=== PATIENT | male | born 1940 | race Caucasian/White ===

== ENCOUNTER → 2020-06-12 09:13 | Outpatient (BNVA) | payer MEDICARE, SELFPAY | PROVIDERS: Family Provider Internal Medicine; PCP Internal Medicine; Visit Provider Urology | DX: R97.20 Elevated prostate specific antigen [PSA] (principal); N41.1 Chronic prostatitis | CPT/HCPCS: 81001; 84153 ==

== ENCOUNTER → 2020-10-18 17:15 | Outpatient (BNVA) | payer MEDICARE, SELFPAY | PROVIDERS: Family Provider Internal Medicine; PCP Internal Medicine; Visit Provider Internal Medicine | DX: I10 Essential (primary) hypertension (principal); N41.1 Chronic prostatitis; Z13.220 Encounter for screening for lipoid disorders | CPT/HCPCS: 80053; 80061; 84443; 85025 ==

== ENCOUNTER → 2020-11-09 13:44 | Outpatient (BNVA) | payer MEDICARE, SELFPAY | PROVIDERS: Family Provider Internal Medicine; PCP Internal Medicine; Visit Provider Nurse Practitioner Family | DX: R33.9 Retention of urine, unspecified (principal); N41.1 Chronic prostatitis | CPT/HCPCS: 81003; 87077; 87086; 87184 ==

== ENCOUNTER → 2020-11-30 14:09 | Outpatient (BNVA) | payer MEDICARE, SELFPAY | PROVIDERS: Family Provider Internal Medicine; PCP Internal Medicine; Visit Provider Nurse Practitioner Family | DX: N41.1 Chronic prostatitis (principal); R33.9 Retention of urine, unspecified | CPT/HCPCS: 81003; 87086 ==

== ENCOUNTER → 2021-06-12 08:27 | Outpatient (BNVA) | payer MEDICARE, SELFPAY | PROVIDERS: Family Provider Internal Medicine; PCP Internal Medicine; Visit Provider Urology | DX: N41.1 Chronic prostatitis (principal); R33.9 Retention of urine, unspecified | CPT/HCPCS: 81003 ==

== ENCOUNTER → 2022-01-16 10:04 | Outpatient (BNVA) | payer MEDICARE, SELFPAY | PROVIDERS: Family Provider Internal Medicine; PCP Internal Medicine; Visit Provider Internal Medicine | DX: Z20.822 Contact with and (suspected) exposure to COVID-19 (principal); Z01.818 Encounter for other preprocedural examination; R13.10 Dysphagia, unspecified; I10 Essential (primary) hypertension | CPT/HCPCS: 87635 ==

== ENCOUNTER 2022-01-21 06:39 | Day surgery (SDC) | payer MEDICARE, SELFPAY ==
[2022-01-18 12:24] VITALS: BMI 23.6
--- NOTE | 2022-01-21 07:33 | P.HP_ITS ---
Same Day Surgery H&P Indication for Procedure/HPI DATE OF PROCEDURE: January 21, 2022 CHIEF COMPLAINT/INDICATIONFOR SURGICAL PROCEDURE: Dysphagia PREOP DIAGNOSIS: Acute dysphagia PLANNED PROCEDURE: Operation Date: 01/21/22 08:45 Proposed Procedures p EGD 58207(Not Applicable) - Chance Gr MD Medications/Allergies* Home Medications Medication Instructions Recorded Confirmed Type lisinopril 20 mg tablet 1 mg PO DAILY 01/18/22 01/18/22 History tamsulosin 0.4 mg capsule 0.4 mg PO BID 01/18/22 01/18/22 History Allergies/Adverse Reactions Allergy/AdvReac Type Severity Reaction Status Date / Time No Known Allergies Allergy Verified 01/16/22 09:19 Pertinent History/Comorbid Conditions* Medical History (Updated 01/16/22 @ 09:39 by Chance Gr MD) Chronic prostatitis Elevated PSA Erectile dysfunction HTN (hypertension) Hx of melanoma of skin Incomplete bladder emptying Surgical History (Updated 06/12/20 @ 09:45 by Tariq Murcia MD) Hx of umbilical hernia repair Family History (Updated 05/17/20 @ 16:22 by ALICIA Beckman) Father, AT AGE 49 BRAIN CANCER Mother, AT AGE 48 RETINOBLASTOMA,LUNG CANCER Cancer Mother Sister Father Social History Smoking and tobacco status: never smoked Alcohol intake: unknown Marital status: / Current occupational status: retired History of recent travel: No Pertinent Exam Findings alert, oriented x 3, clear to auscultation bilaterally, regular rate & rhythm, operative site marked and procedure specific exam findings Recommendations Surgery/Procedure today Coding Level of Care Code Acute Sap Senior Developer for Eileen Norris
--- NOTE | 2022-01-21 07:38 | ANES.PREANE2 ---
Pre-Anesthetic Assessment Height/Weight: Height 1.75 m Weight 72.575 kg Preop Diagnosis: Acute dysphagia Operation Date: 01/21/22 08:45 Proposed Procedures p EGD 72678(Not Applicable) - Chance Gr MD Was Beta Valdemar taken within 24 hours: N/A Was Clonidine taken within 24 hours: N/A Last intake: 01/20/22 Social No alcohol and No tobacco Exam alert, oriented x 3, clear to auscultation bilaterally and regular rate & rhythm Airway Submandibular: within normal limits Cervical ROM: within normal limits Mallampati: Class III Comments: Comments: Missing Pulmonary None reported CV/HEM Hypertension None reported Hepatic None reported GI None reported Metabolic None reported Musc/skel None reported Neuropsych None reported Anesthetic Plan ASA status: 2 Anesthesia: Anesthesia Evaluation Other: I discussed with the patient risks, goals, and benefits of MAC and general anesthesia. We discussed spectrum of MAC anesthesia including conversion to general as well as possibility of recall of intraoperative stimuli including discomfort/pain. Patient agrees to proceed with MAC. Risk of > 500 ml blood loss (7ml/kg in children): No Medications/Allergies Home Medications Medication Instructions Recorded Confirmed Last Taken Type lisinopril 20 mg tablet 1 mg PO DAILY 01/18/22 01/18/22 01/20/22 History tamsulosin 0.4 mg capsule 0.4 mg PO BID 01/18/22 01/18/22 01/20/22 History Allergies Allergy/AdvReac Type Severity Reaction Status Date / Time No Known Allergies Allergy Verified 01/21/22 07:51 [facility] Anesthesia Medical History Chronic prostatitis Elevated PSA Erectile dysfunction HTN (hypertension) Hx of melanoma of skin Incomplete bladder emptying Surgical History Hx of umbilical hernia repair Family History Mother , AT AGE 48 RETINOBLASTOMA,LUNG CANCER Cancer Sister Cancer Father , AT AGE 49 BRAIN CANCER Cancer Social History Smoking and tobacco status: never smoked Alcohol intake: unknown Marital status: / Current occupational status: retired History of recent travel: No Data Anesthesia Cardiac Studies: No Data to Display
[2022-01-21 07:50] VITALS: BP 165/71; PULSE 75; RESP 16; TEMP 36.2; O2SAT 98
[2022-01-21] MEDS: sodium chloride 0.9% 1,000 ML 30 ML IV (08:00)
[2022-01-21 08:53] VITALS: BP 101/64; PULSE 75; RESP 18; TEMP 36.4; O2SAT 94
[2022-01-21 09:09] VITALS: BP 128/77; PULSE 74; RESP 18; TEMP 36.6; O2SAT 95
--- NOTE | 2022-01-21 13:49 | ANE.PACU2 ---
Inpatient post-anesthesia follow up: Airway intact: Yes Vital signs: Temperature 97.8 F Pulse Rate 74 Respiratory Rate 18 Blood Pressure 128/77 Pulse Oximetry 95 Oxygen Delivery Me thod Room Air Oxygen Flow Rate Fraction of Inspir ed Oxygen Hydration adequate: Yes Nausea and vomiting: No Pain level: 1 Mental status: Baseline
[2022-01-23 09:46] LABS: H. Pylori / CLO Test Negative
== END 2022-01-21 09:47 | disposition home or self-care (01) ==
PROVIDERS: PCP Internal Medicine; Visit Provider Internal Medicine
PROC: 0DJ08ZZ Inspection of Upper Intestinal Tract, Via Natural or Artificial Opening Endoscopic (ICD-10-PCS; CPT 43235; principal; 2022-01-21 08:45)
DX: R13.10 Dysphagia, unspecified (principal); I10 Essential (primary) hypertension; K21.00 Gastro-esophageal reflux disease with esophagitis, without bleeding; K44.9 Diaphragmatic hernia without obstruction or gangrene; K29.70 Gastritis, unspecified, without bleeding
CPT/HCPCS: 43239; 87077; 88305; 88313; 88342; J2704; J7030

== ENCOUNTER → 2022-05-06 12:33 | Outpatient (BNVA) | payer MEDICARE, SELFPAY | PROVIDERS: PCP Internal Medicine; Visit Provider Urology | DX: R33.9 Retention of urine, unspecified (principal); N41.1 Chronic prostatitis | CPT/HCPCS: G0463; 81003; 87077; 87086; 87186; 99213 ==

== ENCOUNTER 2023-12-30 09:19 | Inpatient (IN) | payer MEDICARE, SELFPAY ==
[2023-12-30] VITALS (62 sets, daily range): BP systolic 80–141; BP diastolic 48–89; PULSE 66–97; RESP 7–27; TEMP 36.8–37.2; O2SAT 90–100; BMI 23.6
--- NOTE | 2023-12-30 09:23 | ECG_ITS ---
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 Measurements Intervals [place] Rate: 100 P: 84 OR: 203 QRS: -27 QRSD: 106 T: 56 QT: 348 QTc: 450 Interpretive Statements SINUS TACHYCARDIA SEPTAL MYOCARDIAL INFARCTION , POSSIBLY ACUTE [40+ ms Q WAVE IN V1/V2] ST ELEVATION, CONSIDER ANTERIOR INJURY [MARKED ST ELEVATION W/O NORMALLY ST elevation in the high lateral leads suggestive of myocardial injury with reciprocal ST depressions in the inferior leads INFLECTED T-WAVE IN V2-V5] ACUTE [place] Compared to ECG 10/09/2014 13:54:27 Myocardial infarct finding now present ST (T wave) deviation now present Sinus rhythm no longer present T-wave abnormality no longer present Electronically Signed On 12-30-2023 18:25:20 PROFESSIONAL ARCHITECT by Kathleen Plata M.D. [email or web address]/store/[id number]
--- NOTE | 2023-12-30 09:25 | XRR_ITS ---
PROCEDURE INFORMATION: Exam: XR Chest Exam date and time: 12/30/2023 9:36 AM Age: 83 years old Clinical indication: Condition or disease; Other: Acute mi TECHNIQUE: Imaging protocol: Radiologic exam of the chest. Views: 1 view. COMPARISON: No relevant prior studies available. FINDINGS: Lungs: No consolidation. Pleural spaces: No sizable pleural effusion or pneumothorax. Heart/Mediastinum: No cardiomegaly. Bones/joints: Degenerative changes of the bilateral shoulders. XR/XR chest 1V portable [id number] IMPRESSION: No acute intrathoracic findings.
--- NOTE | 2023-12-30 09:27 | W.ED.CHESTPA ---
HPI - Chest Pain General: Stated Complaint: chest pains Time Seen by Provider: 12/30/23 09:25 Source: patient Mode of arrival: ambulatory History of Present Illness: 83-year-old male presents emergency room complaining chest pain intermittent began yesterday progressively worse this morning to the point where he is extremely diaphoretic and dyspneic with pain radiating to his arms. Patient had some episodes of chest pain yesterday with exertion that caused him to have to stop and rest it resolved this morning it began while he was doing some mild exertional work and it persisted to the point that he presented to the emergency room. Initial EKG shows a ST elevation in the anterior leads. MD complaint: chest pain Onset (ago): hour(s) Onset: during exertion Pain location: substernal Pain radiation: left arm and left shoulder Severity: severe Quality: sharp Relieving factors: nothing Exacerbating factors: nothing Associated symptoms: Deny abdominal pain, diaphoresis, dyspnea, fever(s), leg edema, nausea, palpitations, sense of impending doom, syncope or vomiting Treatment prior to arrival: none Review of Systems Const: Denies: fever(s), chills or diaphoresis Card: Denies: chest pain, palpitations or syncope Resp: Denies: dyspnea GI: Denies: abdominal pain, nausea or vomiting : Denies: dysuria, urinary frequency or urinary urgency Musc: Denies: neck pain or back pain Skin/Breast: Denies: rash PFSH ED PFSH: Medical History (Updated 12/30/23 @ 09:42 by Jose Guidry DO) Retinoblastoma Hx of melanoma of skin Erectile dysfunction HTN (hypertension) Chronic prostatitis Incomplete bladder emptying Elevated PSA Surgical History (Updated 12/30/23 @ 09:42 by Jsoe Guidry DO) H/O enucleation of right eyeball Hx of umbilical hernia repair Family History Mother , AT AGE 48 RETINOBLASTOMA,LUNG CANCER Cancer Sister Cancer Father , AT AGE 49 BRAIN CANCER Cancer Social History Smoking and tobacco/nicotine status: never used tobacco/nicotine Alcohol intake: never Substance/Drug Use: never Marital status: / Current occupational status: retired Physical Exam Const: COMMON NORMALS: no acute distress GENERAL APPEARANCE: cooperative and comfortable ORIENTATION/CONSCIOUSNESS: Yes awake, Yes oriented to person, Yes oriented to place and Yes oriented to time HENMT: COMMON NORMALS: normocephalic, atraumatic and hearing grossly normal bilaterally HEAD & SCALP: normocephalic and atraumatic Resp: COMMON NORMALS: normal respiratory effort, No retractions, No use of accessory muscles and clear to auscultation bilaterally AUSCULTATION: clear to auscultation bilaterally Cardio: COMMON NORMALS: regular rate, regular rhythm and No murmurs present (Cardio) RATE: regular rate RHYTHM: regular rhythm GI: COMMON NORMALS: Soft to palpation and No hepatosplenomegaly present AUSCULTATION: Yes normoactive bowel sounds PALPATION: Yes Soft to palpation, No Tenderness to palpation present (GI), No Guarding due to palpation present (GI) and Yes No hepatosplenomegaly present Extremity: COMMON NORMALS: normal to inspection, capillary refill normal, no clubbing, cyanosis or edema, no calf tenderness and no pedal edema Neuro: SENSORIUM/ORIENTATION: Yes oriented to person, Yes oriented to place and Yes oriented to time Skin: COMMON NORMALS: no rashes or lesions noted GENERAL SKIN EXAM: no rashes or lesions noted MDM - Chest Pain Medical Decision Making Acute ST elevation [place]. Dr. Fink happened to be in the emergency room at the time consulting another patient. Presented EKG Dr. Mathew seen the patient shortly thereafter. He is planning to take the patient to the Police Captain Senior for his acute anterior [place]. Patient was given Plavix aspirin and heparin he is also started on a nitro drip. Differential Diagnosis Likely acute myocardial infarction Medical Records I reviewed the patient's medical records. Lab Data I reviewed the patient's lab results. All radiology interpretation(s) finalized by discharge Discharge Plan Discharge Patient Disposition: Admitted As Inpatient Clinical Impression: ST elevation (STEMI) myocardial infarction Condition: Stable Coding Level of Care Code ED Boning Room 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
--- NOTE | 2023-12-30 09:29 | XACV_ITS ---
Exam Room: 2 Ht: 175 cm Wt: 73 kg BSA: 1.88 m2 Gender: Male : 1940 Exam Priority: Routine Indication(s): - Anterior wall AK w/PTCA and stent placement Procedure(s): Procedure Description: Diagnostic procedure Procedure Description: PCI procedure Procedure Description: Left Heart Catheterization Procedure Description: Left ventriculography Procedure Description: Drug Eluting Coronary Stent Procedure Description: PTCA Procedure Description: Coronary Angiography Aleks FREGOSO; Diagnostic Cath Status: Emergency Diagnostic Findings * No prior history of heart disease. 2 episodes of shortness of breath and pressure yesterday. Today severe chest pain with ST segment elevation V1 V2, 1 and L. Reciprocal changes inferiorly. Coronary angiography performed via the right radial artery. There is right coronary artery dominance. There are 2 separate ostia for the LAD and circumflex so there is no true left main. The circumflex contains a very mild plaquing but no significant lesions. The LAD is occluded at the ostium. There is moderate calcification. Once the vessel is open the LAD contains moderate diffuse disease throughout. The right is the dominant vessel and ends distally as a tiny posterior descending artery and 2 tiny posterior left ventricular branches. The right coronary artery is essentially normal. PCI Status: Emergency PCI LVEF Assessed: Yes PCI Indication: Immediate PCI for STEMI Interventional Findings * Somewhat difficult intervention due to placement of the guiding catheter. Initially the stent could not be placed primarily. Balloon angioplasty with a smaller balloon was performed and then the vessel was subsequently stented from the ostium through the area of occlusion. A good angiographic result was obtained. The LAD is moderately diffusely diseased but patent at the end of the procedure. Patient tolerated the procedure well. He was hemodynamically stable throughout. There was some accelerated idioventricular rhythm post opening the vessel which resolved prior to his leaving the catheterization laboratory. Decision for PCI with Surgical Consult: No PCI for Multi-vessel Disease: No Conclusions 1. LAD occlusion with angioplasty and stenting successful with good angiographic result. Recommendations * Medical therapy. Interventional RX Recommendation: PCI w/o planned CABG Diagnostic RX Recommendation: PCI w/o planned CABG Anticoagulation: Heparin Ventriculography Ejection Fraction: 45.0 % Pressures Phase:Rest AO : 113 / 57 ( 88 ) @ 10:00:00 AM 118 / 66 ( 88 ) @ 10:01:00 AM 103 / 73 ( 88 ) @ 10:01:00 AM 94 / 77 ( 86 ) @ 10:07:00 AM 90 / 74 ( 83 ) @ 10:11:00 AM 85 / 63 ( 74 ) @ 10:18:00 AM 81 / 59 ( 71 ) @ 10:19:00 AM 126 / 71 ( 97 ) @ 10:25:00 AM 126 / 72 ( 97 ) @ 10:25:00 AM 120 / 77 ( 97 ) @ 10:28:00 AM 106 / 79 ( 93 ) @ 10:29:00 AM LV : 120 / -6 / 5 @ 10:00:00 AM 152 / -17 / 32 @ 10:00:00 AM 125 / 1 / 36 @ 10:24:00 AM 129 / 6 / 33 @ 10:25:00 AM 130 / 6 / 34 @ 10:25:00 AM Valves Phase:DefaultPhase AV : 5.0 @ 10:39:32 AM 5.0 @ 10:39:32 AM AV Mean Gradient: 14.0 @ 10:39:32 AM 14.0 @ 10:39:32 AM Clinical Evaluation EBL: 5mL-10mL Procedural Details Current Diagnosis : STEMI. Admit Source: Emergency department. Pre-Procedure Time Out. Identified patient by full name and date of as verbalized by the patient/guarantor. Does the consent match the physician's order: Yes. Accurate & Complete Informed Consent: Yes. Inpatient/Outpatient History & Physical on Chart: Yes. If H&P is completed, is and addenduem needed: Yes; If yes, is the addendum complete: Yes. Visualize and Verify Site with Patient/Guarantor: N/A. Relevant Radiology Images available: N/A. Pre-op teaching completed and patient verbalized understanding. The risks, benefits, and alternatives of sedation and/or procedure were discussed by physician. The patient agrees to continue. Procedure started. Inpatient/Outpatient History & Physical on Chart: N/A Emergent. [facility] Clinical Fraility Score: 3: Managing Well. Cafe Helper Indications: ACS <= 24 hours. Chest Pain Symptom Assessment: Typical Angina Symptoms. Cardiovascular Instability: Yes, if yes, Persistant Ischemic Symptoms. Correct patient, site and procedure confirmed by cath team. Current diagnosis: STEMI. PERRLA. 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 Lungs clear x 5 lobes. IV Site on Arrival: 18 gauge in the right anticubital. IV Site on Arrival: 20 gauge in the left anticubital. IV Fluids: 0.9% NaCl at KVO. 0 mL infused prior to electronic lab technician. Pre Procedural Pulses: right radial was 2+. Pre Procedural Pulses: bilateral dorsalis pedis was 2+. Oxygen started at 2liters/min via nasal canula. left groin was prepped with chloroprep then draped in the usual sterile fashion. right radial was prepped with chloroprep then draped in the usual sterile fashion. Physician notified. Baseline sample Acquired. HR: 95 BPM. Physician arrived. Physician scrubbed in. Immediate Pre-Procedure Time Out. Correct Patient: Yes; Correct Procedure: Yes; Correct Site: Yes; Correct Patient Position: Yes; Correct Supplies: Yes; Dried Flammable Prep: Yes; Blood Products Available: N/A;. Lidocaine 1% infiltrated to the right radial. Arterial access obtained. 6 samoan XB 3 guide catheter was inserted over the wire. EDP Sample taken: LV 120/-7,5; HR: 74 BPM; SpO2: 99%. Pullback taken: LV 152/-18,32; AO 113/57(88); Mean: 16mmHg, Peak to Peak: 39mmHg, SEP: 25sec/min; HR: 97 BPM; SpO2: 98%. [place] guidewire was advanced through the guide catheter to lesion in the prox LAD. PCI Indication: STEMI. 3.5x15mm Stent inserted to lesion in the prox LAD. Intact stent out OTW. Inflation number : 1 A AB TREK 2.50X12 RX BALLOON was prepped and advanced across the Prox LAD , then inflated to 8 GERA for 0:10 seconds. Inflation number: 2 The AB TREK 2.50X12 RX BALLOON was reinflated across the Prox LAD, to 8 GERA for 0:20 seconds. Inflation number: 3 The AB TREK 2.50X12 RX BALLOON was reinflated across the Prox LAD, to 12 GERA for 0:20 seconds. Balloon out. Inflation Number : 4 A PENG Joaquin RASHAAD 3.5X15 MILLIE -Lot Number# _[id number] EXP: 09/16/2025 was prepped and advanced across the Prox LAD. The stent was deployed at 12 GERA for 0:29 seconds. Stent balloon out over wire. Results checked. PCI Indication : Immediate PCI for STEMI. Wire out. Guide catheter out. A 5 samoan TIG catheter in over wire. Catheter removed over the exchange wire. A 5 samoan Angled Pig catheter in over wire. EDP Sample taken: LV 125/1,36; HR: 95 BPM; SpO2: 97%. LV gram performed in [place] @ 10 mL/second for a total of 30 mL. EDP Sample taken: LV 129/6,33; HR: 94 BPM; SpO2: 96%. Pullback taken: LV 130/6,34; AO 126/71(97); Mean: 14mmHg, Peak to Peak: 5mmHg, SEP: 8sec/min; HR: 94 BPM; SpO2: 97%. Catheter removed over the exchange wire. A 5 samoan TIG catheter in over wire. Multiple views taken of right coronary artery. Catheter removed over the exchange wire. Physician scrubbed out. A TR Band was successful obtaining hemostatsis at the Right Radial artery insertion site. Vital chart was stopped. Post Procedure: Pulses reassessed and unchanged. PERRLA. 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 No VTE prophylaxis required. Medication's Wasted: Lidocaine 1% = 2 mL. Medication's Wasted: Other = Fentanyl 50mcg. Medication's Wasted: Heparin = 1000 units. Medication's Wasted: Nitro = 49.8 mg. Total IV fluids: 30 mL. Post-op diagnosis: CAD. Complications: None. Estimated blood loss: 5mL-10mL. Responsiveness - Normal response to verbal stimuli; alert and oriented, PERRLA. Airway - Unaffected, no intervention required; spontaneous ventilation. Circulation: W/N/L, pulses unchanged. Nausea/Vomiting: No. Procedure completed. Patient transferred by wheelchair to CPRU. Access Site Site: Right Radial artery Sheath Size: 6 Fr Hemostasis Method: TR Band Hemostasis Success: Successful Procedure Medications Start: 9:55 AM Stop: 9:55 AM Medication: Fentanyl Amount: 25 mcg Route: I.V. Start: 9:55 AM Stop: 9:55 AM Medication: Versed Amount: 1 mg Route: I.V. Start: 9:58 AM Stop: 9:58 AM Medication: Nitrogylcerin Amount: 200 mcg Route: I.A. Start: 9:58 AM Stop: 9:58 AM Medication: Fentanyl Amount: 25 mcg Route: I.V. Start: 10:00 AM Stop: 10:00 AM Medication: Versed Amount: 0.5 mg Route: I.V. Start: 10:15 AM Stop: 10:15 AM Medication: Versed Amount: 0.5 mg Route: I.V. I, the attending physician, have reviewed and verified all procedure medications. Yes, all medications given per verbal order History/Risk Factors Hypertension: Yes Dyslipidemia: Yes Peripheral Arterial Disease (PAD): No Myocardial Infarction (AK): No Obesity: No Renal Disease: No Prior Interventions PCI: No CABG: No Valve Surgery: No Report Signatures Finalized by Dr. Humberto Fink MD on 12/30/2023 11:12 AM
[2023-12-30] MEDS: ondansetron 2 mg/ML SDV 2 mL 4 MG IVP (09:35)
[2023-12-30] MEDS: heparin 5,000 unit/mL INJ 1 mL 4000 UNIT IVP (09:35)
--- NOTE | 2023-12-30 09:35 | PC.PHAR ---
[facility] VERIFIED ALL CURRENT MEDICATIONS. 12/30/23
[2023-12-30] MEDS: clopidogrel 300 mg Tablet 600 MG PO (09:36)
[2023-12-30] MEDS: aspirin 325 mg Tablet PO (09:37)
[2023-12-30] MEDS: nitroglycerin drip 50 MG/250 ML PREMIX IV (09:38)
[2023-12-30] MEDS: sodium chloride 0.9% 500 ML 999 ML IV (09:41)
--- NOTE | 2023-12-30 09:41 | P.HP_ITS ---
Providers/Chief Complaint 2 Admitting Physician: Aleks Primary Care Provider: Chance Gr MD Chief Complaint: chest pains History of Present Illness Carlos Manuel Young is a 83 year old male with no known prior history of heart disease. He has a history of hypertension and Jones's esophagus. He had a retinoblastoma as a child. Yesterday while he was out in the [employer] working he had an episode of pressure in his chest twice. They both went away. This morning he had the sudden onset of severe chest pressure which caused him to sweat and become short of breath. He came to the emergency room where he has ST segment elevation in leads V1 through V3 as well as leads I and L. There is ST segment depression in leads II, III and aVF. He has been given aspirin, Plavix and heparin bolus. He is being prepared for cardiac catheterization. Review of Systems 2 Narrative: Review of systems is negative. This was an abbreviated review due to the acute nature of the problem. Medications/Allergies Home Medications Medication Instructions Recorded Confirmed Last Taken Type pantoprazole 40 mg tablet,delayed 40 mg PO DAILY #90 tabs 01/21/22 12/30/23 Unknown Rx release omega 3-yac-gft-fish oil 100 1 cap PO DAILY 02/05/22 12/30/23 Unknown History mg-160 mg-1,000 mg capsule (Fish Oil) tamsulosin 0.4 mg capsule 0.4 mg PO BID #180 caps 12/02/22 12/30/23 Unknown Rx lisinopril 20 mg tablet 20 mg PO DAILY 12/30/23 12/30/23 Unknown History Allergies Allergy/AdvReac Type Severity Reaction Status Date / Time No Known Allergies Allergy Verified 08/07/22 09:54 PFSH Acute 2 PFSH: Medical History Hx of melanoma of skin Erectile dysfunction HTN (hypertension) Chronic prostatitis Incomplete bladder emptying Elevated PSA Surgical History Hx of umbilical hernia repair Family History Mother , AT AGE 48 RETINOBLASTOMA,LUNG CANCER Cancer Sister Cancer Father , AT AGE 49 BRAIN CANCER Cancer Social History Smoking and tobacco/nicotine status: never used tobacco/nicotine Alcohol intake: never Substance/Drug Use: never Marital status: / Current occupational status: retired Physical Exam 2 Narrative: GENERAL: He is anxious and having discomfort in his chest HEENT: Exam within normal limits. NECK: Supple without jugular vein distention. The carotid upstroke is normal without bruits. BACK: Exam normal. LUNGS: Clear. HEART: Regular rate and rhythm. ABDOMEN: Benign without organomegaly or tenderness. EXTREMITIES: No edema. NEUROLOGIC: Exam normal. SKIN: Unremarkable. Data 12/30/23 09:30 12/30/23 09:30 A&P Assessment and plan (1) Essential hypertension: (2) ST elevation (STEMI) myocardial infarction: (3) H/O enucleation of right eyeball: (4) Barretts esophagus: (5) Esophageal ulcer with bleeding: (6) Retinoblastoma: Plan He will go directly to cardiac catheterization. Currently there are no labs available other than EKG. Attestations 2 Medical Necessity Statement*: Patient needs admission to the hospital for acute cardiac catheterization and management of an acute anterior wall myocardial infarction. I would expect his hospital stay to cross 2 midnights. and Moderate Time for a total of 40 minutes, includes reviewing past or interval history, examining/interviewing patient, placing orders, counseling patient/family/other support, updating patient/family/other support, discussing plan of care with staff, communicating with other healthcare providers, documenting encounter and coordinating care Diagnoses Essential hypertension I10 ST elevation (STEMI) myocardial infarction I21.3 H/O enucleation of right eyeball Z90.01 Barretts esophagus K22.70 Esophageal ulcer with bleeding K22.11 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
[2023-12-30 09:47] LABS: Basophils # 0.1 10^3/uL (0.0-0.1); Basophils % 0.5 %; Eosinophils # 0.2 10^3/uL (0.0-0.8); Eosinophils % 1.2 %; Hematocrit 47.9 % (37-53); Lymphocytes # 7.2 10^3/uL (0.8-4.8); Lymphocytes % 53.2 %; Mean Corpuscular HGB Conc 34.9 g/dL (30-55); Mean Corpuscular Hemoglobin 33.3 pg (27-33); Mean Corpuscular Volume 95.6 fl (82-101); Mean Platelet Volume 11.3 fL (7.4-10.4); Monocytes # 0.7 10^3/uL (0.2-0.9); Monocytes % 5.4 %; Neutrophils % 39.3 %; Nucleated Red Blood Cells % 0 %; Platelet Count 166 10^3/cmm (157-399); Red Blood Count 5.01 10^6/uL (3.85-5.65); Red Cell Distribution Width 15.9 % (12.1-15.1); White Blood Count 13.49 10^3/uL (3.29-11.43)
[2023-12-30 10:03] LABS: Alanine Aminotransferase 15 U/L (0-41); Albumin Level 4.7 g/dL (3.5-5.2); Alkaline Phosphatase 61 U/L (40-130); Aspartate Amino Transferase 22 U/L (0-40); Blood Urea Nitrogen 14 mg/dL (8-23); Calcium 9.4 mg/dL (8.5-10.5); Carbon Dioxide 20 mmol/L (22-29); Chloride 103 mmol/L (98-107); Creatinine Clr Calc Pharmacy 56.5646; Globulin 2.8 g/dL (1.3-4.6); Glucose 136 mg/dL (65-115); Osmolality Calculated 293 mOsm/kg (285-295); Sodium 140 mmol/L (136-145); Total Bilirubin 0.5 mg/dL (0.15-1.2); Total Protein 7.5 g/dL (6.6-8.7)
[2023-12-30 10:06] LABS: Anion Gap 22.1 (5-19); Potassium 5.1 mmol/L (3.5-5.1)
[2023-12-30 10:10] LABS: Troponin(5th) Baseline 34 ng/L (0-15)
--- NOTE | 2023-12-30 11:13 | PC.NURSE ---
Pt taken to CSU via w/c at this time. Report called to Dawna KUMAR. TRB intact to R radial, no hematoma noted.
--- NOTE | 2023-12-30 11:44 | ECG_ITS ---
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 Measurements Intervals [place] Rate: 86 P: 57 HI: 213 QRS: 41 QRSD: 85 T: 78 QT: 369 QTc: 442 Interpretive Statements SINUS RHYTHM WITH FIRST DEGREE AV BLOCK ANTEROSEPTAL MYOCARDIAL INFARCTION , PROBABLY RECENT [40+ ms Q WAVE IN V1-V4] ACUTE MO Compared to ECG 12/30/2023 09:23:13 First degree AV block now present Sinus tachycardia no longer present ST (T wave) deviation no longer present Myocardial infarct finding still present Electronically Signed On 12-30-2023 18:34:02 SWEEP MOLDER by Kathleen Plata M.D. [id number]
[2023-12-30] MEDS: sodium chloride 0.9% 1,000 ML 100 ML IV ×2 (11:51→22:08)
[2023-12-30] MEDS: metoprolol tartrate 25 mg Tablet PO (11:53)
[2023-12-30 13:15] LABS: Troponin 5 2HR 3169 ng/L (0-15); Troponin 5 2HR Delta 3135 ABS# (0-10)
--- NOTE | 2023-12-30 13:45 | PC.NURSE ---
TR band removal 1150 -2mLs 1220 -2mLs 1245 -2mLs 1305 -2mLs 1325 -2mLs 1345 -3mLs dressing applied, 2x2 and tegaderm dressing dry and intact at this time
--- NOTE | 2023-12-30 15:25 | ECG_ITS ---
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 Measurements Intervals [place] Rate: 72 P: 5 AL: 177 QRS: 59 QRSD: 84 T: 90 QT: 385 QTc: 423 Interpretive Statements SINUS RHYTHM LOW QRS VOLTAGE IN EXTREMITY LEADS [QRS DEFLECTION < 0.5 mV IN LIMB LEADS] ANTEROSEPTAL MYOCARDIAL INFARCTION , PROBABLY RECENT [40+ ms Q WAVE IN V1-V4] ACUTE IN Compared to ECG 12/30/2023 11:44:36 Low QRS voltage now present First degree AV block no longer present Myocardial infarct finding still present Electronically Signed On 12-30-2023 18:40:08 WIRE BOUND BOX MACHINE OPERATOR by Kathleen Plata M.D. [id number]
--- NOTE | 2023-12-30 17:12 | PC.NURSE ---
contacted doctor about low blood pressure no new orders at this time except holding metoprolol due to blood pressure
[2023-12-30] MEDS: tamsulosin 0.4 mg Capsule 0.400000000000000022 MG PO (17:32)
[2023-12-30 20:40] LABS: Troponin T (5th) Once 8129 ng/L (0-15)
[2023-12-30] MEDS: atorvastatin 40 mg Tablet 80 MG PO (21:04)
[2023-12-31] VITALS (7 sets, daily range): BP systolic 82–101; BP diastolic 56–63; PULSE 69–81; RESP 15–17; TEMP 36.8–37.1; O2SAT 93–95; BMI 18.6
[2023-12-31] MEDS: pantoprazole DR 40 mg Tablet PO (08:38)
[2023-12-31] MEDS: aspirin 81 mg EC Tablet PO ×2 (08:38)
[2023-12-31] MEDS: omega-3 fatty acids 1,000 mg Capsule 1000 MG PO (08:38)
[2023-12-31] MEDS: metoprolol tartrate 25 mg Tablet PO (08:38)
[2023-12-31] MEDS: clopidogrel 75 mg Tablet PO (08:38)
[2023-12-31] MEDS: tamsulosin 0.4 mg Capsule 0.400000000000000022 MG PO ×2 (08:38→21:58)
--- NOTE | 2023-12-31 08:39 | PM.PN ---
Subjective Subjective: Right feels much better this morning. He underwent angioplasty and stent of his ostial LAD yesterday. His troponin was above 8000. He has had no further arrhythmias other than some accelerated idioventricular rhythm in the Shipping Services Sales Representative. He also has had no evidence of heart failure. He has no further chest pain. Vitals/I&O/Wt Last Vital Signs Temp 98.3 F 12/31/23 04:00 Pulse 69 12/31/23 08:00 Resp 17 12/31/23 04:00 BP 93/59 12/31/23 04:00 Pulse Ox 95 12/31/23 08:00 O2 Del Method Room Air 12/31/23 08:00 O2 Flow Rate 2 12/30/23 09:32 12/30/23 12/31/23 12/31/23 22:59 06:59 14:59 Intake Total 1000 / 1000 Output Total 225 / 225 Balance 775 / 775 Weight last 48 hrs Weight 126 lb 9.6 oz Weight 121 lb 2 oz Weight 160 lb Physical Exam Narrative: GENERAL: In general he looks well this morning HEENT: Exam within normal limits. NECK: Supple without jugular vein distention. The carotid upstroke is normal without bruits. BACK: Exam normal. LUNGS: Clear. HEART: Regular rate and rhythm. ABDOMEN: Benign without organomegaly or tenderness. EXTREMITIES: No edema. Right radial artery entry site is flat, dry without bleeding or hematoma NEUROLOGIC: Exam normal. SKIN: Unremarkable. 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 I will make medication adjustments today. His blood pressure was a little soft last night so I held the beta-gerardo. If everything goes according to plan he may be discharged home tomorrow. 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
--- NOTE | 2023-12-31 09:15 | PC.NURSE ---
Noticed pt is completely dressed and walking around in his room. Pt asked about making a phone call and I informed him that the phone in his room only makes local calls and that if he needed to make a long distance call that I could make it for him and transfer it to his room. Pt never said if he needed to make a local or long distance call.
--- NOTE | 2023-12-31 09:40 | PC.NURSE ---
Notified Dept Director(Alanis) that I'm afraid that this pt may be an elopement risk although he seemed to understand that he needs to be here another day but he is completely dressed and up and about in his room.
--- NOTE | 2023-12-31 09:54 | PC.NURSE ---
Security is escorting my pt back from the ER to his room. Pt pointed to the security alarm technician which room was his. I went in to ask the pt what he was doing and he said that he was trying to find a phone to make a long distance call.
[2023-12-31] MEDS: atorvastatin 40 mg Tablet 80 MG PO (21:58)
[2024-01-01 00:49] VITALS: BP 71/48; TEMP 37.1
[2024-01-01 00:57] VITALS: BP 94/69
[2024-01-01 04:22] VITALS: BP 94/69; TEMP 37.1
[2024-01-01 08:00] VITALS: PULSE 69; O2SAT 95
[2024-01-01 08:07] VITALS: BP 99/75; TEMP 36.9
[2024-01-01] MEDS: metoprolol tartrate 25 mg Tablet 12.5 MG PO (08:33)
[2024-01-01] MEDS: clopidogrel 75 mg Tablet PO (08:33)
[2024-01-01] MEDS: lisinopril 2.5 mg Tablet PO (08:33)
[2024-01-01] MEDS: omega-3 fatty acids 1,000 mg Capsule 1000 MG PO (08:33)
[2024-01-01] MEDS: pantoprazole DR 40 mg Tablet PO (08:33)
[2024-01-01] MEDS: aspirin 81 mg EC Tablet PO (08:33)
[2024-01-01] MEDS: tamsulosin 0.4 mg Capsule 0.400000000000000022 MG PO (08:34)
--- NOTE | 2024-01-01 09:36 | PM.DCS ---
Discharge Providers Date of Admission: 12/30/23 11:19 Date of Discharge: January 01, 2024 Attending Provider at Admission: Humberto Fink MD Attending Provider at Discharge: Humberto Fink MD Primary Care Provider: Chance Gr MD Diagnoses at Discharge Discharge Diagnosis (1) Essential hypertension: Status: Acute (2) ST elevation (STEMI) myocardial infarction: Status: Acute (3) H/O enucleation of right eyeball: Status: Acute (4) Barretts esophagus: Status: Acute (5) Retinoblastoma: Status: Acute Reason for Visit Reason for Visit: chest pains Brief History: Patient arrived with chest pain and ST elevation in the anterior precordial leads suggesting an acute anterior wall myocardial infarction. He went directly to the cardiac catheterization laboratory. Hospital Course Hospital Course His LAD was occluded at the ostium. He has 2 separate ostia for the LAD and circumflex. 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 It was somewhat difficult to place the guide into the ostium of the LAD. Eventually I was able to accomplish this. It underwent angioplasty and subsequently stenting with a good angiographic result. His echocardiogram shows a wall motion disturbance in this area. He had no evidence of congestive heart failure. There were some reperfusion arrhythmias in the form of accelerated idioventricular rhythm. Those have resolved at the time of discharge. He is on 20 mg of lisinopril at home. His blood pressure was soft and most of the time below 100 mmHg systolic while in the hospital. In order to add low-dose beta-gerardo I decreased the dose of the lisinopril to 2.5 mg daily. At the time of discharge his systolic blood pressure is running right around 100 mmHg. He is doing well without chest pain or shortness of breath. The procedure was done from the right radial artery. There were no complications. No bleeding or hematoma. Physical Exam Narrative: GENERAL: In general he looks and feels well HEENT: Exam within normal limits. NECK: Supple without jugular vein distention. The carotid upstroke is normal without bruits. BACK: Exam normal. LUNGS: Clear. HEART: Regular rate and rhythm. ABDOMEN: Benign without organomegaly or tenderness. EXTREMITIES: No edema. At discharge the right radial artery area is flat, dry without bleeding or hematoma. NEUROLOGIC: Exam normal. SKIN: Unremarkable. Discharge Data Studies Completed and Pending Completed Studies During Hospitalization Category Date Time Status SUSTAINABLE LANDSCAPE ARCHITECT request for service Stat Exams 12/30/23 09:29 Completed XR chest 1V portable [id number] Stat Exams 12/30/23 09:25 Completed Radiology Impressions Chest X-Ray 12/30/23 09:25 IMPRESSION: No acute intrathoracic findings. Laboratory Results WBC 13.49 10^3/uL (3.29-11.43) H 12/30/23 09:30 RBC 5.01 10^6/uL (3.85-5.65) 12/30/23 09:30 Hgb 16.70 g/dL (11.27-16.99) 12/30/23 09:30 Hct 47.9 % (37-53) 12/30/23 09:30 MCV 95.6 fl (82-101) 12/30/23 09:30 MCH 33.3 pg (27-33) H 12/30/23 09:30 MCHC 34.9 g/dL (30-55) 12/30/23 09:30 RDW 15.9 % (12.1-15.1) H 12/30/23 09:30 Plt Count 166 10^3/cmm (157-399) 12/30/23 09:30 MPV 11.3 fL (7.4-10.4) H 12/30/23 09:30 Neut % (Auto) 39.3 % 12/30/23 09:30 Lymph % (Auto) 53.2 % 12/30/23 09:30 Pope % (Auto) 5.4 % 12/30/23 09:30 Eos % (Auto) 1.2 % 12/30/23 09:30 Baso % (Auto) 0.5 % 12/30/23 09:30 Neut # (Auto) 5.30 10^3/uL (1.8-7.7) 12/30/23 09:30 Lymph # (Auto) 7.2 10^3/uL (0.8-4.8) H 12/30/23 09:30 Pope # (Auto) 0.7 10^3/uL (0.2-0.9) 12/30/23 09:30 Eos # (Auto) 0.2 10^3/uL (0.0-0.8) 12/30/23 09:30 Baso # (Auto) 0.1 10^3/uL (0.0-0.1) 12/30/23 09:30 Nucleated RBC % (auto) 0 % 12/30/23 09:30 Nucleated RBCs # 0.0 /100WBC 12/30/23 09:30 Sodium 140 mmol/L (136-145) 12/30/23 09:30 Potassium 5.1 mmol/L (3.5-5.1) 12/30/23 09:30 Chloride 103 mmol/L (98-107) 12/30/23 09:30 Carbon Dioxide 20 mmol/L (22-29) L 12/30/23 09:30 Anion Gap 22.1 (5-19) H 12/30/23 09:30 BUN 14 mg/dL (8-23) 12/30/23 09:30 Creatinine 1.0 mg/dL (0.7-1.2) 12/30/23 09:30 GFR Calculation Not Reportable 12/30/23 09:30 Glucose 136 mg/dL (65-115) H 12/30/23 09:30 Calculated Osmolality 293 mOsm/kg (285-295) 12/30/23 09:30 Calcium 9.4 mg/dL (8.5-10.5) 12/30/23 09:30 Total Bilirubin 0.5 mg/dL (0.15-1.2) 12/30/23 09:30 AST 22 U/L (0-40) 12/30/23 09:30 ALT 15 U/L (0-41) 12/30/23 09:30 Alkaline Phosphatase 61 U/L (40-130) 12/30/23 09:30 Troponin T 5th Gen ng/L 8129 ng/L (0-15) H* 12/30/23 20:07 Troponin T Baseline 34 ng/L (0-15) H 12/30/23 09:30 Troponin T 120 Minute 3169 ng/L (0-15) H 12/30/23 11:27 Delta Troponin T 3135 ABS# (0-10) H* 12/30/23 11:27 Total Protein 7.5 g/dL (6.6-8.7) 12/30/23 09:30 Albumin 4.7 g/dL (3.5-5.2) 12/30/23 09:30 Globulin 2.8 g/dL (1.3-4.6) 12/30/23 09:30 Procedures Performed Left heart catheterization, coronary angiography, angioplasty and stent to the LAD. Vitals Last Vital Signs Temp 98.5 F 01/01/24 08:07 Pulse 69 01/01/24 08:00 Resp 17 12/31/23 04:00 BP 99/75 01/01/24 08:07 Pulse Ox 95 01/01/24 08:00 O2 Del Method Room Air 01/01/24 08:00 O2 Flow Rate 2 12/30/23 09:32 Discharge Plan Discharge Patient Disposition: Home Condition: Stable Prescriptions: New atorvastatin 40 mg Tablet 80 mg PO BEDTIME Qty: 90 0RF clopidogrel 75 mg Tablet 75 mg PO DAILY Qty: 90 0RF nitroglycerin 0.4 mg Tablet, Sublingual 0.4 mg sublingual Q5M PRN (Reason: Chest Pain) Qty: 25 0RF lisinopril 2.5 mg Tablet 2.5 mg PO DAILY Qty: 90 0RF metoprolol tartrate 25 mg Tablet 12.5 mg PO BID Qty: 90 0RF aspirin 81 mg Tablet,Delayed Release (Dr/Ec) 81 mg PO DAILY Qty: 90 3RF Continued Fish Oil 100-160-1,000 mg capsule 1 cap PO DAILY tamsulosin 0.4 mg capsule 0.4 mg PO BID Qty: 180 3RF pantoprazole 40 mg tablet,delayed release (DR/EC) 40 mg PO DAILY Qty: 90 8RF Discontinued lisinopril 20 mg tablet 20 mg PO DAILY Referrals: Chance Gr MD [Primary Care Provider] - Corry Edmondson FNP [Nurse Practitioner] - 01/13/24 2:00 pm Discharge Diet: Cardiac Discharge Activity: Limit activity as instructed Patient Instructions: Coronary Angioplasty (DC), Post Angiogram Home Care Instructions, Post Heart Attack Stoplight Activity Restrictions/Additional Instructions: No lifting over 5 pounds with the right arm for 2 days Discharge Attestations Time Spent in Discharge Care*: greater than 30 min Quality Metrics Clinical Quality Measures [ Acute Myocardial Infaction { Clinical Trial Participant: No; Contraindication to aspirin: None; Aspirin prescribed; Contraindication to statin: None; Statin prescribed; Contraindication to PCI: None; PCI performed;}] Coding Level of Care Code 15048 Total time (in minutes) for Discharge: 60 Diagnoses Essential hypertension I10 ST elevation (STEMI) myocardial infarction I21.3 H/O enucleation of right eyeball Z90.01 Barretts esophagus K22.70 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
[2024-01-01 11:36] VITALS: BP 99/75; TEMP 36.9
--- NOTE | 2024-01-01 11:38 | PC.NURSE ---
Discharge Note Patient discharged to home via POV accompanied by family. Discharge instructions reviewed with patient and/or underwriting sales representative. Mobile pharmacy medications and/or prescriptions provided. Belongings/home medications returned.
== END 2024-01-01 11:38 | disposition home or self-care (01) | DRG 322 ==
LOC: ER 09:40 → CCL 09:42 → CSU 12:32
PROVIDERS: Admitting Provider Internal Medicine Cardiovascular Disease; Emergency Provider Family Medicine; PCP Internal Medicine; Visit Provider Internal Medicine Cardiovascular Disease
PROC: 027034Z Dilation of Coronary Artery, One Artery with Drug-eluting Intraluminal Device, Percutaneous Approach (ICD-10-PCS; principal; 2023-12-30 10:00)
PROC: 027034Z Dilation of Coronary Artery, One Artery with Drug-eluting Intraluminal Device, Percutaneous Approach (ICD-10-PCS; 2023-12-30 10:00)
DX: I21.02 ST elevation (STEMI) myocardial infarction involving left anterior descending coronary artery (principal); I10 Essential (primary) hypertension; K22.70 Barrett's esophagus without dysplasia; N52.9 Male erectile dysfunction, unspecified; R33.9 Retention of urine, unspecified; Z85.820 Personal history of malignant melanoma of skin; Z90.01 Acquired absence of eye; Z85.840 Personal history of malignant neoplasm of eye
CPT/HCPCS: 36415; 71045; 80053; 84484; 85025; 93005; 93458; 96361; 96365; 96375; 96376; 99152; 99153; 99285; C1725; C1769; C1874; C1887; C1894; C9600; J1644; J2250; J2405; J3010; J3490; J7030; J7040; Q9967

== ENCOUNTER → 2024-01-13 13:38 | Outpatient (BNVA) | payer MEDICARE, SELFPAY | PROVIDERS: PCP Internal Medicine; Visit Provider Nurse Practitioner Family | DX: I21.02 ST elevation (STEMI) myocardial infarction involving left anterior descending coronary artery (principal); Z09 Encounter for follow-up examination after completed treatment for conditions other than malignant neoplasm; I10 Essential (primary) hypertension | CPT/HCPCS: 99213 ==

== ENCOUNTER 2024-01-29 13:39 | Emergency (ER) | payer MEDICARE, SELFPAY ==
[2024-01-29 13:46] VITALS: BP 116/68; PULSE 69; RESP 16; TEMP 36.4; O2SAT 98; BMI 23.0
--- NOTE | 2024-01-29 13:56 | ED_ITS ---
HPI - Skin/Abscess/Foreign Bdy 2 General: Chief complaint: Skin/Abscess/Foreign Body Stated complaint: pt states blood spots on his body Time Seen by Provider: 01/29/24 13:48 Source: patient Mode of arrival: ambulatory Limitations: no limitations History of Present Illness: 80-year-old male states that he recently had a heart attack he started on Plavix he states that he noticed that he is got a bruise to his hand and his eyes any wants to make sure that his blood is okay. Denies any injuries denies any pain anywhere. Associated symptoms: Deny chills, fever(s), nausea or vomiting Review of Systems 2 Const: Denies: fever(s), chills, body aches or change in appetite ENMT: Denies: throat pain or dental pain Card: Denies: chest pain Resp: Denies: dyspnea GI: Denies: abdominal pain, nausea, vomiting or diarrhea Musc: Denies: neck pain or back pain Skin/Breast: Denies: rash Neuro: Denies: headache(s) PFSH ED 2 PFSH: Medical History Retinoblastoma Hx of melanoma of skin Erectile dysfunction HTN (hypertension) Chronic prostatitis Incomplete bladder emptying Elevated PSA Surgical History H/O enucleation of right eyeball Hx of umbilical hernia repair Family History Mother , AT AGE 48 RETINOBLASTOMA,LUNG CANCER Cancer Sister Cancer Father , AT AGE 49 BRAIN CANCER Cancer Social History Smoking and tobacco/nicotine status: never used tobacco/nicotine Alcohol intake: never Substance/Drug Use: never Marital status: / Current occupational status: retired Physical Exam 2 Const: COMMON NORMALS: no acute distress, patient oriented x3 and healthy appearing HENMT: COMMON NORMALS: normocephalic and atraumatic HEAD & SCALP: n ormocephalic and atraumatic Neck/C-Spine: COMMON NORMALS: full ROM and supple Chest: COMMONS NORMALS: normal inspection of the chest Resp: COMMON NORMALS: normal respiratory effort Cardio: COMMON NORMALS: regular rate, regular rhythm and No murmurs present (Cardio) RATE: regular rate RHYTHM: regular rhythm Extremity: COMMON NORMALS: normal to inspection Neuro: COMMON NORMALS: patient oriented x3, moves all extremities and no focal motor deficits Psych: COMMON NORMALS: mental status grossly normal, Normal thought process present and cooperative THOUGHT PROCESS: Normal thought process present Skin: NARRATIVE SKIN EXAM: Small contusion noted to the dorsum of right hand along with another contusion underneath right eye Course 2 Vital Signs: Vital signs: Vital Signs Temperature 97.6 F 01/29/24 13:46 Pulse Rate 65 01/29/24 14:10 Respiratory Rate 16 01/29/24 13:46 Blood Pressure 123/73 01/29/24 14:10 Pulse Oximetry 94 01/29/24 14:10 Oxygen Delivery Me thod Room Air 01/29/24 14:10 MDM - Skin/Abscess/Foreign Bdy Medicial Decision Making Patient presents here with contusion he is well-appearing he is CBC is normal he is stable for discharge follow-up with business development coordinator return if worsening. Medical Records I reviewed the patient's medical records. Lab Data I reviewed the patient's lab results. 01/29/24 14:08 Laboratory Results WBC 10.43 10^3/uL (3.29-11.43) 01/29/24 14:08 RBC 4.53 10^6/uL (3.85-5.65) 01/29/24 14:08 Hgb 15.30 g/dL (11.27-16.99) 01/29/24 14:08 Hct 44.1 % (37-53) 01/29/24 14:08 MCV 97.4 fl (82-101) 01/29/24 14:08 MCH 33.8 pg (27-33) H 01/29/24 14:08 MCHC 34.7 g/dL (30-55) 01/29/24 14:08 RDW 15.8 % (12.1-15.1) H 01/29/24 14:08 Plt Count 127 10^3/cmm (157-399) L 01/29/24 14:08 MPV 11.4 fL (7.4-10.4) H 01/29/24 14:08 Neut % (Auto) 44.6 % 01/29/24 14:08 Lymph % (Auto) 46.0 % 01/29/24 14:08 Christian % (Auto) 6.9 % 01/29/24 14:08 Eos % (Auto) 1.9 % 01/29/24 14:08 Baso % (Auto) 0.4 % 01/29/24 14:08 Neut # (Auto) 4.65 10^3/uL (1.8-7.7) 01/29/24 14:08 Lymph # (Auto) 4.8 10^3/uL (0.8-4.8) 01/29/24 14:08 Christian # (Auto) 0.7 10^3/uL (0.2-0.9) 01/29/24 14:08 Eos # (Auto) 0.2 10^3/uL (0.0-0.8) 01/29/24 14:08 Baso # (Auto) 0.0 10^3/uL (0.0-0.1) 01/29/24 14:08 Nucleated RBC % (auto) 0 % 01/29/24 14:08 Nucleated RBCs # 0.0 /100WBC 01/29/24 14:08 No radiology studies performed this visit Discharge Plan Discharge Patient Disposition: Home Clinical Impression: Contusion Condition: Stable Prescriptions: No Action Fish Oil 100-160-1,000 mg capsule 1 cap PO DAILY tamsulosin 0.4 mg capsule 0.4 mg PO BID Qty: 180 3RF pantoprazole 40 mg tablet,delayed release (DR/EC) 40 mg PO DAILY Qty: 90 8RF aspirin 81 mg Tablet,Delayed Release (Dr/Ec) 81 mg PO DAILY Qty: 90 3RF atorvastatin 40 mg Tablet 80 mg PO BEDTIME Qty: 90 0RF clopidogrel 75 mg Tablet 75 mg PO DAILY Qty: 90 0RF nitroglycerin 0.4 mg Tablet, Sublingual 0.4 mg sublingual Q5M PRN (Reason: Chest Pain) Qty: 25 0RF lisinopril 2.5 mg Tablet 2.5 mg PO DAILY Qty: 90 0RF metoprolol tartrate 25 mg Tablet 12.5 mg PO BID Qty: 90 0RF Discharge Orders: Discharge ED (Routine); Ordered 01/29/24 Ordered By: Anne Rosenthal Referrals: Chance Gr MD [Primary Care Provider] - Discharge Diet: Advance as tolerated Discharge Activity: Resume usual activity Patient Instructions: Contusion in Adults (ED) Coding Level of Care Code ED Bottle Carrier for Eileen Norris
[2024-01-29 14:10] VITALS: BP 123/73; PULSE 65; O2SAT 94
[2024-01-29 14:20] LABS: Basophils % 0.4 %; Eosinophils # 0.2 10^3/uL (0.0-0.8); Eosinophils % 1.9 %; Hematocrit 44.1 % (37-53); Lymphocytes # 4.8 10^3/uL (0.8-4.8); Mean Corpuscular HGB Conc 34.7 g/dL (30-55); Mean Corpuscular Hemoglobin 33.8 pg (27-33); Mean Corpuscular Volume 97.4 fl (82-101); Mean Platelet Volume 11.4 fL (7.4-10.4); Monocytes # 0.7 10^3/uL (0.2-0.9); Monocytes % 6.9 %; Neutrophils # 4.65 10^3/uL (1.8-7.7); Neutrophils % 44.6 %; Nucleated Red Blood Cells % 0 %; Platelet Count 127 10^3/cmm (157-399); Red Blood Count 4.53 10^6/uL (3.85-5.65); Red Cell Distribution Width 15.8 % (12.1-15.1); White Blood Count 10.43 10^3/uL (3.29-11.43)
[2024-01-29 14:48] VITALS: BP 98/65; PULSE 62; O2SAT 92
== END 2024-01-29 14:49 | disposition home or self-care (01) ==
PROVIDERS: Emergency Provider Emergency Medicine; PCP Internal Medicine
DX: S60.221A Contusion of right hand, initial encounter (principal); S00.83XA Contusion of other part of head, initial encounter; I10 Essential (primary) hypertension; X58.XXXA Exposure to other specified factors, initial encounter; Z79.02 Long term (current) use of antithrombotics/antiplatelets
CPT/HCPCS: 36415; 85025; 99283

== ENCOUNTER → 2024-03-23 11:51 | Outpatient (BNVA) | payer MEDICARE, SELFPAY | PROVIDERS: PCP Internal Medicine; Visit Provider Internal Medicine Cardiovascular Disease | DX: I10 Essential (primary) hypertension (principal); Z90.01 Acquired absence of eye; C69.20 Malignant neoplasm of unspecified retina; I25.2 Old myocardial infarction | CPT/HCPCS: 99213 ==

== ENCOUNTER 2024-06-03 01:22 | Emergency (ER) | payer MEDICARE, SELFPAY ==
[2024-06-03 01:27] VITALS: BP 126/75; PULSE 73; RESP 18; TEMP 36.7; O2SAT 95; BMI 21.1
--- NOTE | 2024-06-03 01:49 | ED_ITS ---
HPI - Male Genitourinary General: Chief complaint: Urogenital-Male Stated complaint: Unable to use bathroom Time Seen by Provider: 06/03/24 01:28 History of Present Illness: Patient presents to the ER with complaints of unable to urinate. He says he has not been able to urinate more than a couple ounces since approximately 3 PM last night. The patient so is not that uncomfortable but he was talking to his son this time told to get here to be checked out. Review of Systems General: Reports: 10 or more systems reviewed and unremarkable except in HPI and below PFSH ED PFSH: Medical History Retinoblastoma Hx of melanoma of skin Erectile dysfunction HTN (hypertension) Chronic prostatitis Incomplete bladder emptying Elevated PSA Surgical History H/O enucleation of right eyeball Hx of umbilical hernia repair Family History Mother , AT AGE 48 RETINOBLASTOMA,LUNG CANCER Cancer Sister Cancer Father , AT AGE 49 BRAIN CANCER Cancer Social History Smoking and tobacco/nicotine status: never used tobacco/nicotine Alcohol intake: never Substance/Drug Use: never Marital status: / Current occupational status: retired Physical Exam Const: COMMON NORMALS: no acute distress, average body habitus, patient oriented x3, no limitations, healthy appearing, alert and well nourished HENMT: COMMON NORMALS: normocephalic, atraumatic, hearing grossly normal bilaterally, external ears normal, Normal external nose present and moist oral mucous membranes HEAD & SCALP: normocephalic and atraumatic NOSE: Normal external nose present EXTERNAL EAR: Yes external ears normal Neck/C-Spine: COMMON NORMALS: no JVD Chest: COMMONS NORMALS: normal inspection of the chest and normal palpation of entire chest wall Resp: COMMON NORMALS: normal respiratory effort, No retractions, No use of accessory muscles and clear to auscultation bilaterally AUSCULTATION: clear to auscultation bilaterally Cardio: COMMON NORMALS: no JVD, regular rate, regular rhythm, S1 normal heart sound present, S2 normal heart sound present, No gallops present (Cardio), No clicks present (Cardio), No murmurs present (Cardio) and No rub (Cardio) RATE: regular rate RHYTHM: regular rhythm HEART SOUNDS: S1 normal heart sound present and S2 normal heart sound present GI: COMMON NORMALS: Normal to inspection, nondistended, normoactive bowel sounds present, Soft to palpation, non-tender, No hepatosplenomegaly present and no masses PALPATION: Yes Soft to palpation and Yes No hepatosplenomegaly present Neuro: COMMON NORMALS: patient oriented x3 SENSORIUM/ORIENTATION: Yes alert Course Vital Signs: Vital signs: Vital Signs Temperature 98.0 F 06/03/24 01:27 Pulse Rate 73 06/03/24 01:27 Respiratory Rate 18 06/03/24 01:27 Blood Pressure 126/75 06/03/24 01:27 Pulse Oximetry 95 06/03/24 01:27 Oxygen Delivery Me thod Room Air 06/03/24 01:27 MDM - Male Medical Decision Making Physical exam was negative, bladder scan showed 130 in his bladder. This was discussed with the patient patient will be discharged home. Medical Records I reviewed the patient's medical records. Lab Data I reviewed the patient's lab results. All radiology interpretation(s) finalized by discharge Discharge Plan Discharge Patient Disposition: Home Clinical Impression: Physically well but worried Condition: Stable Prescriptions: No Action Fish Oil 100-160-1,000 mg capsule 1 cap PO DAILY tamsulosin 0.4 mg capsule 0.4 mg PO BID Qty: 180 3RF clopidogrel 75 mg tablet 75 mg PO DAILY Qty: 90 3RF metoprolol tartrate 25 mg tablet 12.5 mg PO BID Qty: 90 3RF lisinopril 2.5 mg tablet 2.5 mg PO DAILY Qty: 90 2RF atorvastatin 80 mg tablet 80 mg PO BEDTIME Qty: 90 3RF pantoprazole 40 mg tablet,delayed release (DR/EC) 40 mg PO DAILY Qty: 90 8RF aspirin 81 mg Tablet,Delayed Release (Dr/Ec) 81 mg PO DAILY Qty: 90 3RF nitroglycerin 0.4 mg Tablet, Sublingual 0.4 mg sublingual Q5M PRN (Reason: Chest Pain) Qty: 25 0RF Discharge Orders: Discharge ED (Routine); Ordered 06/03/24 Ordered By: Juanjo Briggs Referrals: Chance Gr MD [Primary Care Provider] - Patient Instructions: Normal Exam (ED) Activity Restrictions/Additional Instructions: Thank you for choosing [facility] for your healthcare needs today. Please realize that you were seen in the emergency department and that we are providing you with an emergency medical screening exam and this may not be a complete and all exclusive of all testing and/or medical workup we may need to determine your element or severity of your illness. It is very important that you follow-up as instructed with your primary care provider or specialist for the additional evaluation and to discuss your medical treatment plan. You may return to the emergency department should you have concerns or if your condition changes or worsens in any way. Coding Level of Care Code ED Mechanical Integrity Specialist for Eileen Norris
[2024-06-03 02:01] VITALS: BP 138/95; PULSE 67; RESP 18; O2SAT 97
== END 2024-06-03 02:14 | disposition home or self-care (01) ==
PROVIDERS: Emergency Provider Emergency Medicine; PCP Internal Medicine
DX: Z03.89 Encounter for observation for other suspected diseases and conditions ruled out (principal); Z79.02 Long term (current) use of antithrombotics/antiplatelets; Z79.82 Long term (current) use of aspirin; I10 Essential (primary) hypertension
CPT/HCPCS: 51798; 99283

== ENCOUNTER 2024-10-08 10:48 | Outpatient (CLI) | payer MEDICARE, SELFPAY ==
--- NOTE | 2024-10-08 11:10 | CT_ITS ---
WS: [id number] CT HEAD NONCONTRAST HISTORY: MEMORY LOSS TECHNIQUE: Contiguous axial imaging performed through the brain. Bone and soft tissue windows. Sagitt al and coronal reformats reviewed. All CT scans at [facility] use at least one of these dose optimization techniques: automated exposure control; mA and/or kV adjustment per patient size (includ es targeted exams where dose is matched to clinical indication); or iterative reconstruction. DLP: 1056.28 mGy.cm COMPARISON: None available. Moderate symmetric volume loss and mild small vessel ischemic disease. No prior infarcts. There is al so moderate cerebellar volume loss. No prior infarct. No hemorrhage. Ventricles: Normal size with no hydrocephalus. No inferior displacement of cerebellar tonsils. Paranasal sinuses: As visualized are clear. Mastoid air cells: Well pneumatized. Calvarium and scalp: Skull is intact with no soft tissue edema or swelling. Surgical removal of the RIGHT orbit with prosthesis. CT/CT head wo con* [id number] IMPRESSION: 1. No acute intracranial hemorrhage or edema. 2. Moderate symmetric volume loss and mild small vessel disease.
[2024-10-08 12:07] LABS: Basophils % 0.2 %; Eosinophils # 0.1 10^3/uL (0.0-0.8); Eosinophils % 0.4 %; Hematocrit 41.8 % (37-53); Lymphocytes # 3.9 10^3/uL (0.8-4.8); Lymphocytes % 20.3 %; Mean Corpuscular HGB Conc 34.4 g/dL (30-55); Mean Corpuscular Hemoglobin 33.2 pg (27-33); Mean Corpuscular Volume 96.3 fl (82-101); Mean Platelet Volume 12.3 fL (7.4-10.4); Monocytes # 1.3 10^3/uL (0.2-0.9); Monocytes % 6.8 %; Neutrophils # 13.86 10^3/uL (1.8-7.7); Neutrophils % 71.5 %; Nucleated Red Blood Cells % 0 %; Platelet Count 128 10^3/cmm (157-399); Red Blood Count 4.34 10^6/uL (3.85-5.65); Red Cell Distribution Width 16.2 % (12.1-15.1); White Blood Count 19.35 10^3/uL (3.29-11.43)
== END 2024-10-08 10:49 | disposition home or self-care (01) ==
PROVIDERS: PCP Internal Medicine; Visit Provider Internal Medicine
DX: R41.3 Other amnesia (principal); R93.0 Abnormal findings on diagnostic imaging of skull and head, not elsewhere classified; Z90.01 Acquired absence of eye; G93.89 Other specified disorders of brain
CPT/HCPCS: 36415; 70450; 85025

== ENCOUNTER 2024-10-12 11:38 | Observation (INO) | payer MEDICARE, SELFPAY ==
[2024-10-12 11:46] VITALS: BP 143/81; PULSE 67; RESP 16; TEMP 36.4; O2SAT 98; BMI 35.4
--- NOTE | 2024-10-12 13:08 | ED_ITS ---
HPI - Male Genitourinary 2 General: Chief complaint: Urogenital-Male Stated complaint: urinary Time Seen by Provider: 10/12/24 12:58 History of Present Illness: 84-year-old male presents emergency room complaining of inability to urinate for the last several days reason bloated has abdominal discomfort and pain. No fever sweats or chills. He does have an inguinal hernia he is concerned that the inguinal hernia may be causing his urinary retention. He is currently on tamsulosin 0.4 mg twice daily. Associated symptoms: Deny dysuria Related Data Home Medications Medication Instructions Recorded Confirmed omega 1-rrb-xxb-fish oil 100 1 cap PO DAILY 02/05/22 10/12/24 mg-160 mg-1,000 mg capsule (Fish Oil) Previous Rx's Medication Instructions Recorded pantoprazole 40 mg tablet,delayed 40 mg PO DAILY #90 tabs 01/21/22 release tamsulosin 0.4 mg capsule 0.4 mg PO BID #180 caps 12/02/22 aspirin 81 mg tablet,delayed 81 mg PO DAILY #90 tabs 01/01/24 release nitroglycerin 0.4 mg sublingual 0.4 mg sublingual Q5M PRN Chest 01/01/24 tablet Pain #25 tabs clopidogrel 75 mg tablet 75 mg PO DAILY #90 tabs 02/16/24 lisinopril 2.5 mg tablet 2.5 mg PO DAILY #90 tabs 02/16/24 metoprolol tartrate 25 mg tablet 12.5 mg (1/2 x 25 mg) PO BID #90 02/16/24 tabs atorvastatin 80 mg tablet 80 mg PO BEDTIME #90 tabs 03/18/24 Allergies Allergy/AdvReac Type Severity Reaction Status Date / Time No Known Allergies Allergy Verified 10/12/24 11:44 Review of Systems 2 Const: Denies: fever(s) or chills Card: Denies: chest pain Resp: Denies: dyspnea GI: Reports: abdominal pain : Reports: difficulty urinating and oliguria; Denies: dysuria, urinary frequency or urinary urgency Musc: Denies: neck pain or back pain Skin/Breast: Denies: rash PFSH ED 2 PFSH: Medical History Retinoblastoma Hx of melanoma of skin Erectile dysfunction HTN (hypertension) Chronic prostatitis Incomplete bladder emptying Elevated PSA Surgical History H/O enucleation of right eyeball Hx of umbilical hernia repair Family History Mother , AT AGE 48 RETINOBLASTOMA,LUNG CANCER Cancer Sister Cancer Father , AT AGE 49 BRAIN CANCER Cancer Social History Smoking and tobacco/nicotine status: never used tobacco/nicotine Alcohol intake: never Substance/Drug Use: never Marital status: / Current occupational status: retired Physical Exam 2 Const: GENERAL APPEARANCE: cooperative ORIENTATION/CONSCIOUSNESS: Yes awake, Yes oriented to person, Yes oriented to place and Yes oriented to time HENMT: COMMON NORMALS: normocephalic, atraumatic and hearing grossly normal bilaterally HEAD & SCALP: normocephalic and atraumatic Resp: COMMON NORMALS: normal respiratory effort, No retractions, No use of accessory muscles and clear to auscultation bilaterally AUSCULTATION: clear to auscultation bilaterally Cardio: COMMON NORMALS: regular rate, regular rhythm and No murmurs present (Cardio) RATE: regular rate RHYTHM: regular rhythm GI: COMMON NORMALS: No hepatosplenomegaly present AUSCULTATION: Yes normoactive bowel sounds PALPATION: Yes Tenderness to palpation present (GI), No Guarding due to palpation present (GI) and Yes No hepatosplenomegaly present OTHER: Bladder palpable to the level of the umbilicus Extremity: COMMON NORMALS: normal to inspection, capillary refill normal, no clubbing, cyanosis or edema, no calf tenderness and no pedal edema Neuro: SENSORIUM/ORIENTATION: Yes oriented to person, Yes oriented to place and Yes oriented to time Skin: COMMON NORMALS: no rashes or lesions noted GENERAL SKIN EXAM: no rashes or lesions noted Course 2 Vital Signs: Vital signs: Vital Signs Temperature 97.5 F L 10/12/24 11:46 Pulse Rate 65 10/12/24 15:24 Respiratory Rate 16 10/12/24 11:46 Blood Pressure 150/90 10/12/24 15:24 Pulse Oximetry 99 10/12/24 15:24 Oxygen Delivery Me thod Room Air 10/12/24 15:24 MDM - Male Medical Decision Making Patient has significant urinary retention also has cystitis with marked leukocytosis. Placed on observation started on Zosyn. Most recent urine culture dates back to April 2022 was Enterococcus faecalis and was pansensitive. At the time of dictation patient has had over 1300 and is still draining, we had clamped earlier for a time. He has had significant relief. Medical Records I reviewed the patient's medical records. Lab Data I reviewed the patient's lab results. 10/12/24 13:03 10/12/24 13:03 Laboratory Results WBC 16.70 10^3/uL (3.29-11.43) H 10/12/24 13:03 RBC 4.40 10^6/uL (3.85-5.65) 10/12/24 13:03 Hgb 14.60 g/dL (11.27-16.99) 10/12/24 13:03 Hct 42.8 % (37-53) 10/12/24 13:03 MCV 97.3 fl (82-101) 10/12/24 13:03 MCH 33.2 pg (27-33) H 10/12/24 13:03 MCHC 34.1 g/dL (30-55) 10/12/24 13:03 RDW 15.9 % (12.1-15.1) H 10/12/24 13:03 Plt Count 192 10^3/cmm (157-399) 10/12/24 13:03 MPV 10.9 fL (7.4-10.4) H 10/12/24 13:03 Neut % (Auto) 53.5 % 10/12/24 13:03 Lymph % (Auto) 36.6 % 10/12/24 13:03 [place] % (Auto) 7.4 % 10/12/24 13:03 Eos % (Auto) 1.1 % 10/12/24 13:03 Baso % (Auto) 0.4 % 10/12/24 13:03 Neut # (Auto) 8.93 10^3/uL (1.8-7.7) H 10/12/24 13:03 Lymph # (Auto) 6.1 10^3/uL (0.8-4.8) H 10/12/24 13:03 [place] # (Auto) 1.2 10^3/uL (0.2-0.9) H 10/12/24 13:03 Eos # (Auto) 0.2 10^3/uL (0.0-0.8) 10/12/24 13:03 Baso # (Auto) 0.1 10^3/uL (0.0-0.1) 10/12/24 13:03 Nucleated RBC % (auto) 0 % 10/12/24 13:03 Nucleated RBCs # 0.0 /100WBC 10/12/24 13:03 Sodium 136 mmol/L (136-145) 10/12/24 13:03 Potassium 4.0 mmol/L (3.5-5.1) 10/12/24 13:03 Chloride 100 mmol/L (98-107) 10/12/24 13:03 Carbon Dioxide 24 mmol/L (22-29) 10/12/24 13:03 Anion Gap 16.0 (5-19) 10/12/24 13:03 BUN 15 mg/dL (8-23) 10/12/24 13:03 Creatinine 0.8 mg/dL (0.7-1.2) 10/12/24 13:03 GFR Calculation Not Reportable 10/12/24 13:03 Glucose 114 mg/dL (65-115) 10/12/24 13:03 Calculated Osmolality 284 mOsm/kg (285-295) L 10/12/24 13:03 Calcium 8.8 mg/dL (8.5-10.5) 10/12/24 13:03 Total Bilirubin 0.7 mg/dL (0.15-1.2) 10/12/24 13:03 AST 30 U/L (0-40) 10/12/24 13:03 ALT 44 U/L (0-41) H 10/12/24 13:03 Alkaline Phosphatase 65 U/L (40-130) 10/12/24 13:03 Total Protein 6.7 g/dL (6.6-8.7) 10/12/24 13:03 Albumin 3.7 g/dL (3.5-5.2) 10/12/24 13:03 Globulin 3.0 g/dL (1.3-4.6) 10/12/24 13:03 Urine Color Yellow (Yellow) 10/12/24 15:19 Urine Appearance Cloudy (CLEAR) A 10/12/24 15:19 Urine pH 5.5 (5-7) 10/12/24 15:19 Ur Specific [place] 1.014 (1.005-1.030) 10/12/24 15:19 Urine Protein Trace (Negative) A 10/12/24 15:19 Urine Glucose (UA) Negative (Normal) 10/12/24 15:19 Urine Ketones Negative (Negative) 10/12/24 15:19 Urine Blood 2+ (Negative) A 10/12/24 15:19 Urine Nitrate Negative (Negative) 10/12/24 15:19 Urine Bilirubin Negative (Negative) 10/12/24 15:19 Urine Urobilinogen 1.0 mg/dL (Negative) 10/12/24 15:19 Ur Leukocyte Esterase 3+ (Negative) A 10/12/24 15:19 Urine RBC 11-20 /hpf (0-2) H 10/12/24 15:19 Urine WBC >100 /hpf (0-5) H 10/12/24 15:19 Ur Squamous Epith Cells 0-5 /hpf (0-5) 10/12/24 15:19 Amorphous Sediment Not Reportable 10/12/24 15:19 Urine Bacteria 4+ /hpf (NONE) H 10/12/24 15:19 Hyaline Casts 0.40 /lpf 10/12/24 15:19 All radiology interpretation(s) finalized by discharge Discharge Plan Discharge Patient Disposition: Admitted As Inpatient Clinical Impression: Cystitis, Acute retention of urine, Inguinal hernia Condition: Stable Prescriptions: No Action Fish Oil 100-160-1,000 mg capsule 1 cap PO DAILY tamsulosin 0.4 mg capsule 0.4 mg PO BID Qty: 180 3RF clopidogrel 75 mg tablet 75 mg PO DAILY Qty: 90 3RF metoprolol tartrate 25 mg tablet 12.5 mg PO BID Qty: 90 3RF lisinopril 2.5 mg tablet 2.5 mg PO DAILY Qty: 90 2RF atorvastatin 80 mg tablet 80 mg PO BEDTIME Qty: 90 3RF pantoprazole 40 mg tablet,delayed release (DR/EC) 40 mg PO DAILY Qty: 90 8RF aspirin 81 mg Tablet,Delayed Release (Dr/Ec) 81 mg PO DAILY Qty: 90 3RF nitroglycerin 0.4 mg Tablet, Sublingual 0.4 mg sublingual Q5M PRN (Reason: Chest Pain) Qty: 25 0RF Referrals: Chance Gr MD [Primary Care Provider] - Patient Instructions: Opioid Safety, Pain Management Coding Level of Care Code ED [employer] 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
[2024-10-12 13:12] LABS: Basophils # 0.1 10^3/uL (0.0-0.1); Basophils % 0.4 %; Eosinophils # 0.2 10^3/uL (0.0-0.8); Eosinophils % 1.1 %; Hematocrit 42.8 % (37-53); Lymphocytes # 6.1 10^3/uL (0.8-4.8); Lymphocytes % 36.6 %; Mean Corpuscular HGB Conc 34.1 g/dL (30-55); Mean Corpuscular Hemoglobin 33.2 pg (27-33); Mean Corpuscular Volume 97.3 fl (82-101); Mean Platelet Volume 10.9 fL (7.4-10.4); Monocytes # 1.2 10^3/uL (0.2-0.9); Monocytes % 7.4 %; Neutrophils # 8.93 10^3/uL (1.8-7.7); Neutrophils % 53.5 %; Nucleated Red Blood Cells % 0 %; Platelet Count 192 10^3/cmm (157-399); Red Cell Distribution Width 15.9 % (12.1-15.1)
[2024-10-12 13:31] LABS: Alanine Aminotransferase 44 U/L (0-41); Albumin Level 3.7 g/dL (3.5-5.2); Alkaline Phosphatase 65 U/L (40-130); Aspartate Amino Transferase 30 U/L (0-40); Blood Urea Nitrogen 15 mg/dL (8-23); Calcium 8.8 mg/dL (8.5-10.5); Carbon Dioxide 24 mmol/L (22-29); Chloride 100 mmol/L (98-107); Creatinine Clr Calc Pharmacy 83.5769; Glucose 114 mg/dL (65-115); Osmolality Calculated 284 mOsm/kg (285-295); Sodium 136 mmol/L (136-145); Total Bilirubin 0.7 mg/dL (0.15-1.2); Total Protein 6.7 g/dL (6.6-8.7)
[2024-10-12 13:36] LABS: Slide Review Slide Review Perform
[2024-10-12 15:24] VITALS: BP 150/90; PULSE 65; O2SAT 99
[2024-10-12 15:30] LABS: Bilirubin Urine Negative (Negative); Blood Urine 2+ (Negative); Glucose Urine UA Negative (Normal); Ketones Urine Negative (Negative); Leukocyte Esterase Urine 3+ (Negative); Nitrate Urine Negative (Negative); Protein Urine Trace (Negative); Specific Gravity, Urine 1.014 (1.005-1.030); Urine Appearance Cloudy (CLEAR); Urine Color Yellow (Yellow); pH Urine 5.5 (5-7)
[2024-10-12 15:33] LABS: Add Urine Microscopic? YES; Bacteria Urine 4+ /hpf; Squamous Epithelial Cell Urine 0-5 /hpf (0-5); WBC Urine >100 /hpf (0-5)
--- NOTE | 2024-10-12 15:36 | PC.PHAR ---
2 docs prescribed lisinopril one was 2.5mg and one was 20mg patient states as of right now hes on 2.5
[2024-10-12 15:37] LABS: Add Urine Culture? Yes
--- NOTE | 2024-10-12 16:07 | PC.NURSE ---
antibiotics delayed d/t needing blood cultures drawn
[2024-10-12 16:30] VITALS: BP 151/79; PULSE 72; O2SAT 97
[2024-10-12 16:42] LABS: Lactic Sepsis W/Reflex 0.9 mmol/L (0.5-2.2)
[2024-10-12] MEDS: piperacillin-tazobactam 3.375 GM in sodium chloride 0.9% (plus) 50 ML IV (16:50)
--- NOTE | 2024-10-12 16:52 | P.HP_ITS ---
Providers/Chief Complaint 2 Admitting Physician: Arpit Kerr Primary Care Provider: Chance Gr MD Chief Complaint: urinary History of Present Illness Pleasant 84-year-old gentleman with history of BPH, history of chronic prostatitis, in the past following with urology, presented due to urinary retention, unable to urinate, with lower abdominal distention, pain, she was initially concerned that perhaps his right inguinal hernia was affecting his ability to urinate but this was not found to be incarcerated in ER. He is on twice daily tamsulosin at home and states has not missed any doses. In ER UA is cloudy with pyuria with more than 100 WBC, 4+ bacteria. Review of Systems 2 Const: Denies: fever(s), chills, body aches or malaise Card: Denies: chest pain, edema or dyspnea on exertion Resp: Denies: dyspnea, productive cough, change in phlegm color or hemoptysis GI: Denies: abdominal pain, nausea, vomiting, diarrhea, constipation, hematochezia or melena : Reports: difficulty urinating; Denies: flank pain, urinary frequency or hematuria Musc: Denies: back pain, joint swelling or joint redness Skin/Breast: Denies: rash Neuro: Denies: headache(s) or dizziness Medications/Allergies Home Medications Medication Instructions Recorded Confirmed Last Taken Type pantoprazole 40 mg tablet,delayed 40 mg PO DAILY #90 tabs 01/21/22 10/12/24 10/12/24 Rx release omega 6-upu-gia-fish oil 100 1 cap PO DAILY 02/05/22 10/12/24 Unknown History mg-160 mg-1,000 mg capsule (Fish Oil) tamsulosin 0.4 mg capsule 0.4 mg PO BID #180 caps 12/02/22 10/12/24 10/12/24 Rx aspirin 81 mg tablet,delayed 81 mg PO DAILY #90 tabs 01/01/24 10/12/24 10/12/24 Rx release nitroglycerin 0.4 mg sublingual 0.4 mg sublingual Q5M PRN Chest 01/01/24 10/12/24 Unknown Rx tablet Pain #25 tabs clopidogrel 75 mg tablet 75 mg PO DAILY #90 tabs 02/16/24 10/12/24 10/12/24 Rx lisinopril 2.5 mg tablet 2.5 mg PO DAILY #90 tabs 02/16/24 10/12/24 10/12/24 Rx metoprolol tartrate 25 mg tablet 12.5 mg (1/2 x 25 mg) PO BID #90 02/16/24 10/12/24 10/12/24 Rx tabs atorvastatin 80 mg tablet 80 mg PO BEDTIME #90 tabs 03/18/24 10/12/24 10/12/24 Rx Allergies Allergy/AdvReac Type Severity Reaction Status Date / Time No Known Allergies Allergy Verified 10/12/24 11:44 PFSH Acute 2 PFSH: Medical History Retinoblastoma Hx of melanoma of skin Erectile dysfunction HTN (hypertension) Chronic prostatitis Incomplete bladder emptying Elevated PSA Surgical History H/O enucleation of right eyeball Hx of umbilical hernia repair Family History Mother , AT AGE 48 RETINOBLASTOMA,LUNG CANCER Cancer Sister Cancer Father , AT AGE 49 BRAIN CANCER Cancer Social History Smoking and tobacco/nicotine status: never used tobacco/nicotine Alcohol intake: never Substance/Drug Use: never Marital status: / Current occupational status: retired Vitals/I&O/Wt Last Vital Signs Temp 97.5 F L 10/12/24 11:46 Pulse 65 10/12/24 15:24 Resp 16 10/12/24 11:46 BP 150/90 10/12/24 15:24 Pulse Ox 99 10/12/24 15:24 O2 Del Method Room Air 10/12/24 15:24 10/12/24 10/12/24 10/12/24 06:59 14:59 22:59 Intake Total 0 / 0 Balance 0 / 0 Weight last 48 hrs Weight 108.862 kg Physical Exam 2 Narrative: Accompanied by his son Const: COMMON NORMALS: patient oriented x3 and alert GENERAL APPEARANCE: c ooperative ORIENTATION/CONSCIOUSNESS: Yes awake HENMT: COMMON NORMALS: oropharynx normal OTHER: Blind in right eye Neck/C-Spine: COMMON NORMALS: no JVD Resp: COMMON NORMALS: normal respiratory effort and clear to auscultation bilaterally AUSCULTATION: clear to auscultation bilaterally Cardio: COMMON NORMALS: no JVD, regular rhythm, S1 normal heart sound present, S2 normal heart sound present and No murmurs present (Cardio) RHYTHM: regular rhythm HEART SOUNDS: S1 normal heart sound present and S2 normal heart sound present GI: COMMON NORMALS: Normal to inspection, nondistended, normoactive bowel sounds present, Soft to palpation and non-tender PALPATION: Yes Soft to palpation Extremity: COMMON NORMALS: no joint enlargement and no pedal edema Neuro: COMMON NORMALS: patient oriented x3 and moves all extremities S ENSORIUM/ORIENTATION: Yes alert Skin: COMMON NORMALS: no rashes or lesions noted GENERAL SKIN EXAM: no rashes or lesions noted Urinary Catheter Management: Granger: Cath Placed During This Visit: yes Urinary Catheter Date of Insertion: 10/12/24 Urinary Catheter Time of Insertion: 15:21 Data 10/12/24 13:03 10/12/24 13:03 Micro: Microbiology 10/12/24 16:12 Blood Culture - Preliminary Blood SPECIMEN COLLECTED 10/12/24 16:10 Blood Culture - Preliminary Blood SPECIMEN COLLECTED A&P Assessment and plan (1) Complicated UTI (urinary tract infection): Complicated UTI with acute urine retention, significant pyuria more than 100 WBC, 11-20 RBC, 4+ bacteria. History of BPH, past history of chronic prostatitis. Previously following with urology. Takes tamsulosin twice daily, and states has not missed any doses. Granger catheter is been placed in ER, so far a liter has been drained and Granger catheter has been clamped in ER. Decompress remaining urine in the bladder. Monitor for risk of hematuria after decompression of severely distended bladder, risk of obstruction Granger catheter. Treat urinary tract infection, for now empirically started on Zosyn. Monitor for risk of cytopenia, C. difficile. Reviewed prior culture, Enterococcus. Urine culture has been sent off. Continue Flomax. Discussed with him and his son likely discharge with Granger catheter with leg bag, and will need to follow- up with urology. He states he will go to [place]. Reviewed vitals, CBC, CMP, lactic acid, UA, ER provider note, prior urine culture, discussed with ER provider. At current time he does not have symptoms of prostatitis. (2) Acute retention of urine: Cont Granger. Discussed cont Granger after DC, discussed risk of UTI with Granger catheter with a leg bag, including infection, injury. Discussed would preferentially avoid long-term catheter due to risks, so he knows to make sure to follow-up with urology. Plan Inguinal hernia: Uncomplicated inguinal hernia, reducible, he was initially concerned that hernia was causing urinary retention. At this time does not appear to have any incarceration. Discussed with him consideration of follow-up as outpatient to monitor hernia, which she intends to do, but he knows to seek medical attention in case of any red flags suggestive of incarceration. HTN: Monitor blood pressure. Blood pressure 151/79. Resume lisinopril. Continue aspirin, Plavix, metoprolol Attestations 2 Medical Necessity Statement*: Place in observation for additional assessment management of complicated UTI, urinary retension. and High MDM includes amount and/or complexity of data reviewed/ordered [ previous or external records, resulted lab(s)/test(s), ordered lab(s)/test(s) and other healthcare professional discussion] and described risk of complication, morbidity or mortality of management as documented Diagnoses Complicated UTI (urinary tract infection) N39.0 Acute retention of urine R33.8
[2024-10-12 18:00] VITALS: BP 120/56; PULSE 76; O2SAT 95
--- NOTE | 2024-10-12 18:34 | PC.NURSE ---
urine output of 1,600mL @1835
[2024-10-12 18:58] VITALS: BP 122/56; PULSE 82; O2SAT 94
[2024-10-12 19:45] VITALS: BP 160/81; PULSE 77; RESP 17; TEMP 36.9; O2SAT 94
[2024-10-12 19:51] VITALS: BMI 21.2
[2024-10-12] MEDS: enoxaparin 40 mg/0.4 mL Syringe SUBCUT (20:43)
[2024-10-12] MEDS: atorvastatin 40 mg Tablet 80 MG PO (20:43)
[2024-10-12] MEDS: metoprolol tartrate 25 mg Tablet 12.5 MG PO (20:43)
[2024-10-12] MEDS: tamsulosin 0.4 mg Capsule PO (20:43)
[2024-10-13 00:10] VITALS: BP 120/64; PULSE 70; RESP 18; TEMP 37.4; O2SAT 95
[2024-10-13] MEDS: piperacillin-tazobactam 3.375 GM in sodium chloride 0.9% (plus) 50 ML IV ×2 (01:01→08:47)
[2024-10-13 03:56] VITALS: BP 107/61; PULSE 71; RESP 17; TEMP 37.4; O2SAT 95
[2024-10-13 04:42] VITALS: BMI 20.9
[2024-10-13 05:15] LABS: Basophils # 0.1 10^3/uL (0.0-0.1); Basophils % 0.5 %; Eosinophils # 0.2 10^3/uL (0.0-0.8); Eosinophils % 1.6 %; Hematocrit 39.7 % (37-53); Lymphocytes # 5.5 10^3/uL (0.8-4.8); Mean Corpuscular HGB Conc 33.8 g/dL (30-55); Mean Corpuscular Hemoglobin 32.6 pg (27-33); Mean Corpuscular Volume 96.6 fl (82-101); Mean Platelet Volume 11.3 fL (7.4-10.4); Monocytes # 1.1 10^3/uL (0.2-0.9); Monocytes % 7.8 %; Neutrophils # 7.11 10^3/uL (1.8-7.7); Nucleated Red Blood Cells % 0 %; Platelet Count 198 10^3/cmm (157-399); Red Blood Count 4.11 10^6/uL (3.85-5.65); Red Cell Distribution Width 15.7 % (12.1-15.1); White Blood Count 14.17 10^3/uL (3.29-11.43)
[2024-10-13 05:39] LABS: Anion Gap 14.1 (5-19); Blood Urea Nitrogen 13 mg/dL (8-23); Calcium 8.8 mg/dL (8.5-10.5); Carbon Dioxide 24 mmol/L (22-29); Chloride 106 mmol/L (98-107); Glucose 94 mg/dL (65-115); Osmolality Calculated 290 mOsm/kg (285-295); Potassium 4.1 mmol/L (3.5-5.1); Sodium 140 mmol/L (136-145)
[2024-10-13 07:14] VITALS: BP 134/76; PULSE 72; RESP 16; TEMP 37.3; O2SAT 90
[2024-10-13] MEDS: lisinopril 2.5 mg Tablet PO (08:46)
[2024-10-13] MEDS: metoprolol tartrate 25 mg Tablet 12.5 MG PO (08:46)
[2024-10-13] MEDS: pantoprazole DR 40 mg Tablet PO (08:46)
[2024-10-13] MEDS: tamsulosin 0.4 mg Capsule PO (08:46)
[2024-10-13] MEDS: aspirin 81 mg EC Tablet PO (08:46)
[2024-10-13] MEDS: clopidogrel 75 mg Tablet PO (08:46)
--- NOTE | 2024-10-13 09:57 | PM.DCS ---
Discharge Providers Date of Admission: 10/12/24 16:47 Date of Discharge: October 13, 2024 Attending Provider at Admission: Arpit Kerr Attending Provider at Discharge: Arpit Kerr Primary Care Provider: Chance Gr MD Diagnoses at Discharge Discharge Diagnosis (1) Complicated UTI (urinary tract infection): Status: Acute (2) Acute retention of urine: Status: Acute Reason for Visit Reason for Visit: urinary Brief History: Pleasant 84-year-old gentleman with history of BPH, history of chronic prostatitis, in the past following with urology, presented due to urinary retention, unable to urinate, with lower abdominal distention, pain, she was initially concerned that perhaps his right inguinal hernia was affecting his ability to urinate but this was not found to be incarcerated in ER. He is on twice daily tamsulosin at home and states has not missed any doses. In ER UA is cloudy with pyuria with more than 100 WBC, 4+ bacteria. Hospital Course Hospital Course He did well on observation in the hospital. Today he is feeling much better. Denies any abdominal pain or distention. Has not developed hematuria. No issues with Granger catheter, which is draining. No fever, chills. Leukocytosis improving. Urine culture reviewed, pending, blood culture reviewed, so far negative. He is continued on Flomax. Continues with treatment for urinary tract infection, discharging to complete course with ciprofloxacin. He will follow-up with urology in [place]. Please follow-up urine culture. He is discharging with a Granger with a leg bag for continued decompression. Consider voiding trial in office. Please follow-up final urine cultures. Reassess kidney function. Continue to monitor hypertension control. He additionally is going to follow-up with regards to reducible right inguinal hernia. Physical Exam Const: COMMON NORMALS: patient oriented x3 and alert GENERAL APPEARANCE: cooperative ORIENTATION/CONSCIOUSNESS: Yes awake HENMT: COMMON NORMALS: oropharynx normal OTHER: Blind in right eye Neck/C-Spine: COMMON NORMALS: no JVD Resp: COMMON NORMALS: normal respiratory effort and clear to auscultation bilaterally AUSCULTATION: clear to auscultation bilaterally Cardio: COMMON NORMALS: no JVD, regular rhythm, S1 normal heart sound present, S2 normal heart sound present and No murmurs present (Cardio) RHYTHM: regular rhythm HEART SOUNDS: S1 normal heart sound present and S2 normal heart sound present GI: COMMON NORMALS: Normal to inspection, nondistended, normoactive bowel sounds present, Soft to palpation and non-tender PALPATION: Yes Soft to palpation Extremity: COMMON NORMALS: no joint enlargement and no pedal edema Neuro: COMMON NORMALS: patient oriented x3 and moves all extremities SENSORIUM/ORIENTATION: Yes alert Skin: COMMON NORMALS: no rashes or lesions noted GENERAL SKIN EXAM: no rashes or lesions noted Urinary Catheter Management: Granger: Cath Placed During This Visit: no Discharge Data Studies Completed and Pending Pending at discharge Category Date Time Status Basic Metabolic Panel AM LABS Lab 10/14/24 04:00 Ordered Basic Metabolic Panel AM LABS Lab 10/15/24 04:00 Ordered Blood Culture Stat Lab 10/12/24 16:12 Results Complete Blood Count w/Auto AM LABS Lab 10/14/24 04:00 Ordered Complete Blood Count w/Auto AM LABS Lab 10/15/24 04:00 Ordered Urine Culture Stat Lab 10/12/24 15:19 Received Laboratory Results WBC 14.17 10^3/uL (3.29-11.43) H 10/13/24 04:38 RBC 4.11 10^6/uL (3.85-5.65) 10/13/24 04:38 Hgb 13.40 g/dL (11.27-16.99) 10/13/24 04:38 Hct 39.7 % (37-53) 10/13/24 04:38 MCV 96.6 fl (82-101) 10/13/24 04:38 MCH 32.6 pg (27-33) 10/13/24 04:38 MCHC 33.8 g/dL (30-55) 10/13/24 04:38 RDW 15.7 % (12.1-15.1) H 10/13/24 04:38 Plt Count 198 10^3/cmm (157-399) 10/13/24 04:38 MPV 11.3 fL (7.4-10.4) H 10/13/24 04:38 Neut % (Auto) 50.0 % 10/13/24 04:38 Lymph % (Auto) 39.0 % 10/13/24 04:38 [place] % (Auto) 7.8 % 10/13/24 04:38 Eos % (Auto) 1.6 % 10/13/24 04:38 Baso % (Auto) 0.5 % 10/13/24 04:38 Neut # (Auto) 7.11 10^3/uL (1.8-7.7) 10/13/24 04:38 Lymph # (Auto) 5.5 10^3/uL (0.8-4.8) H 10/13/24 04:38 [place] # (Auto) 1.1 10^3/uL (0.2-0.9) H 10/13/24 04:38 Eos # (Auto) 0.2 10^3/uL (0.0-0.8) 10/13/24 04:38 Baso # (Auto) 0.1 10^3/uL (0.0-0.1) 10/13/24 04:38 Nucleated RBC % (auto) 0 % 10/13/24 04:38 Nucleated RBCs # 0.0 /100WBC 10/13/24 04:38 Sodium 140 mmol/L (136-145) 10/13/24 04:38 Potassium 4.1 mmol/L (3.5-5.1) 10/13/24 04:38 Chloride 106 mmol/L (98-107) 10/13/24 04:38 Carbon Dioxide 24 mmol/L (22-29) 10/13/24 04:38 Anion Gap 14.1 (5-19) 10/13/24 04:38 BUN 13 mg/dL (8-23) 10/13/24 04:38 Creatinine 0.8 mg/dL (0.7-1.2) 10/13/24 04:38 GFR Calculation Not Reportable 10/13/24 04:38 Glucose 94 mg/dL (65-115) 10/13/24 04:38 Calculated Osmolality 290 mOsm/kg (285-295) 10/13/24 04:38 Lactic Acid 0.9 mmol/L (0.5-2.2) 10/12/24 16:10 Calcium 8.8 mg/dL (8.5-10.5) 10/13/24 04:38 Total Bilirubin 0.7 mg/dL (0.15-1.2) 10/12/24 13:03 AST 30 U/L (0-40) 10/12/24 13:03 ALT 44 U/L (0-41) H 10/12/24 13:03 Alkaline Phosphatase 65 U/L (40-130) 10/12/24 13:03 Total Protein 6.7 g/dL (6.6-8.7) 10/12/24 13:03 Albumin 3.7 g/dL (3.5-5.2) 10/12/24 13:03 Globulin 3.0 g/dL (1.3-4.6) 10/12/24 13:03 Urine Color Yellow (Yellow) 10/12/24 15:19 Urine Appearance Cloudy (CLEAR) A 10/12/24 15:19 Urine pH 5.5 (5-7) 10/12/24 15:19 Ur Specific [place] 1.014 (1.005-1.030) 10/12/24 15:19 Urine Protein Trace (Negative) A 10/12/24 15:19 Urine Glucose (UA) Negative (Normal) 10/12/24 15:19 Urine Ketones Negative (Negative) 10/12/24 15:19 Urine Blood 2+ (Negative) A 10/12/24 15:19 Urine Nitrate Negative (Negative) 10/12/24 15:19 Urine Bilirubin Negative (Negative) 10/12/24 15:19 Urine Urobilinogen 1.0 mg/dL (Negative) 10/12/24 15:19 Ur Leukocyte Esterase 3+ (Negative) A 10/12/24 15:19 Urine RBC 11-20 /hpf (0-2) H 10/12/24 15:19 Urine WBC >100 /hpf (0-5) H 10/12/24 15:19 Ur Squamous Epith Cells 0-5 /hpf (0-5) 10/12/24 15:19 Amorphous Sediment Not Reportable 10/12/24 15:19 Urine Bacteria 4+ /hpf (NONE) H 10/12/24 15:19 Hyaline Casts 0.40 /lpf 10/12/24 15:19 Vitals Last Vital Signs Temp 99.1 F 10/13/24 07:14 Pulse 72 10/13/24 07:14 Resp 16 10/13/24 07:14 BP 134/76 10/13/24 07:14 Pulse Ox 90 10/13/24 07:14 O2 Del Method Room Air 10/13/24 07:14 Discharge Plan Discharge Patient Disposition: Home Condition: Stable Prescriptions: New ciprofloxacin HCl 500 mg tablet 500 mg PO BID Qty: 10 0RF Continued Fish Oil 100-160-1,000 mg capsule 1 cap PO DAILY tamsulosin 0.4 mg capsule 0.4 mg PO BID Qty: 180 3RF clopidogrel 75 mg tablet 75 mg PO DAILY Qty: 90 3RF metoprolol tartrate 25 mg tablet 12.5 mg PO BID Qty: 90 3RF lisinopril 2.5 mg tablet 2.5 mg PO DAILY Qty: 90 2RF atorvastatin 80 mg tablet 80 mg PO BEDTIME Qty: 90 3RF pantoprazole 40 mg tablet,delayed release (DR/EC) 40 mg PO DAILY Qty: 90 8RF aspirin 81 mg Tablet,Delayed Release (Dr/Ec) 81 mg PO DAILY Qty: 90 3RF nitroglycerin 0.4 mg Tablet, Sublingual 0.4 mg sublingual Q5M PRN (Reason: Chest Pain) Qty: 25 0RF Discharge Orders: Discharge Order (Routine); Ordered 10/13/24 Ordered By: Arpit Kerr Referrals: Chance Gr MD [Primary Care Provider] - 10/18/24 4:00 pm Max Petit [Referring] - 11/04/24 8:40 am Discharge Diet: Cardiac Patient Instructions: Ciprofloxacin (By mouth), Urinary Retention in Men (GEN), Inguinal Hernia (GEN), Urinary Leg Bag (GEN), Urinary Tract Infection in Older Adults (GEN), How to Change a Catheter Drainage Bag (GEN) Activity Restrictions/Additional Instructions: Please follow-up with your primary provider as well as with your urologist in [place] for reassessment after urinary retention, as well as urinary tract infection. Continue antibiotic therapy. Keep Granger catheter in place until voiding trial at urology office or your primary doctor's office, whichever visit comes first. Please have your primary provider follow-up final urinary culture. Follow-up with your primary doctor for reassessment of blood pressure and right inguinal hernia. As discussed, seek medical attention in case of any worsening or new concerning symptoms. Discharge Attestations Time Spent in Discharge Care*: greater than 30 min Quality Metrics Clinical Quality Measures [ No reported AMI, CVA or VTE this stay] Coding Level of Care Code 09677 Total time (in minutes) for Discharge: 40 Diagnoses Complicated UTI (urinary tract infection) N39.0 Acute retention of urine R33.8
--- NOTE | 2024-10-13 10:38 | PC.NURSE ---
Calls [facility] to schedule a follow-up appointment. Talks with [facility] mobility architect. Appointment made with Dr. Petit on 11/04/2024 at 0840. Fax number [phone].
--- NOTE | 2024-10-13 10:39 | PC.CHAP ---
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 teletypewriter installer visit [] Patient/Family/Request visit [] Outpatient visit [] Follow-up visit [] Physician referral [] Code/Alert [x] Routine visit [] Staff referral [] Actively dying [] Patient sleeping [] Family support [] [] Out of room [] Palliative care [] [] Receiving care in room [] Pre-surgical visit [] Trauma [] Long length of stay [] ICU visit [] Other: Relational/Emotional Strength [x] Patient feels connected with others/family/visitors/staff [] Distress [] Loneliness/isolation [] Abandonment Spirituality of Patient [x] Person of Tiana [] Attends Mu-Ism of their Tiana [x] Believes in Prayer [] Reads Bible or Orthodox materials [] There are Spiritual issues to be addressed Explosives Engineer Interventions [x] Prayer [x] Active listening [] Non-anxious presence [x] Spiritual/emotional support [] Crisis/trauma care [] Spiritual counseling [] Bereavement support [] Provided bereavement packet [] Provided Bible/devotional materials [] Provided toy/stuffed animal, coloring book to patient or family member [] Provided Communion [] Anointing/[place] [] Salvation [x] Completed spiritual assessment [] Other: Impact on Illness or Injury [] Angry [] Fearful [] Anxious [] Often cries [] Exhaustion [] Unable to work [] Unable to attend lutheran [] Unable to walk/stand [] Unable to read [] Unable to drive [] Unable to eat/drink [] Unable to sleep [] Unable to be with family [] Patient intubated [] Other: Summary Time spent with patient 5 min
[2024-10-13 12:27] VITALS: BP 137/76; PULSE 72; RESP 16; TEMP 37.3; O2SAT 90
== END 2024-10-13 11:00 | disposition home or self-care (01) ==
LOC: ER 16:06 → ER IP 16:47 → MEDSURG 18:13
PROVIDERS: Admitting Provider Internal Medicine; Emergency Provider Family Medicine; PCP Internal Medicine; Visit Provider Internal Medicine
DX: N39.0 Urinary tract infection, site not specified (principal); R33.8 Other retention of urine; N40.0 Benign prostatic hyperplasia without lower urinary tract symptoms; N41.1 Chronic prostatitis; R33.9 Retention of urine, unspecified
CPT/HCPCS: 36415; 51702; 80048; 80053; 81001; 83605; 85025; 87040; 87077; 87086; 87186; 96365; 96372; 99285; G0378; J1650; J2543